=== PATIENT | female | born 1970 | race Caucasian/White ===

== ENCOUNTER 2020-06-30 19:38 | Emergency (ER) | payer SELFPAY ==
--- OUTSIDE RECORDS SUMMARY | 2020-06-30 19:42 | XMS REPORT | Continuity of Care Document ---
:1970 Author Organization [facility] t Address On license of [facility] Dr. Aburto [address] [place] [id number] Care Team Providers Name Role Phone DR Calli DURÁN Attending Clinician Unavailable DR Calli DURÁN Admitting Clinician Unavailable Problems This patient has no known problems. Allergies, Adverse Reactions, Alerts This patient has no known allergies or adverse reactions. Medications This patient has no known medications. Procedures This patient has no known procedures. Encounters Start End Encounter Admission Attending Care Care Encounter Source Date/Time Date/Time Type Type Clinicians Facility Department ID 2018-07-24 2018-07-24 Emergency E LILY DURÁN [facility] [id number] [facility] Results Test Description Test Time Test Comments Results Result Comments Source URINE CULTURE 2018-07-26 08:04:00 Test Item Value Reference Range Interpretation Comme nts Isolate 1 (test code = ISO1) Klebsiella pneumoniae ssp pneumoniae A ampicillin (test code = am) ug/mL R ampicillin/sulbactam (test code = ams) ug/mL S piperacillin/tazobactam (test code = tzp) ug/mL S cefazolin (test code = cz) ug/mL S ceftazidime (test code = tali) ug/mL S ceftriaxone1 (test code = ctr) ug/mL S cefepime (test code = fep) ug/mL S aztreonam (test code = azm) ug/mL S ertapenem (test code = etp) ug/mL S meropenem (test code = mem) ug/mL S gentamicin (test code = gm) ug/mL S tobramycin (test code = tob) ug/mL S levofloxacin (test code = lev) ug/mL S nitrofurantoin (test code = ftn) ug/mL S trimethoprim/sulfamethoxazole (test code = ug/mL S sxt) U/S [id number] 16:20:34Right upper quadrant ultrasoundLocation Code: [id number] HISTORY: Abdominal painTechnique: Grayscaleand selected color Doppler ultrasound of the abdomen wasperformed.Findings:The liver is normal in ech ogenicity. There is no mass or intrahepatic biliaryductal dilatation. Right liver span is 11.5cm.The bladder appears mildly distended however there are no stones orsludge.Gallbladder wall is 3 mm. Common bile duct measures 5 mm. There is nopericholecystic fluid. Sonographic Catalan sign is negative.The right kidney measures 10.4 x 3.5 x 4.6 cm. Mild right-sided hydronephrosisnoted along with cyst in the midpole measuring 1.2 x 1.4 cm.The visualized portions of the pancreas, aorta, and inferior vena cava areunremarkable. IMPRESSION: Mild fullness of the right renal collecting system with 1.4 cmrightrenal cyst.Mildly distended gallbladder without stones.U/S [id number] 16:20:34Right upper quadrant ultrasoundLocation Code: [id number] HISTORY: Abdominal painTechnique: Grayscaleand selected color Doppler ultrasound of the abdomen wasperformed.Findings:The liver is normal in echogenicity. There is no mass or intrahepatic biliaryductal dilatation. Right liver span is 11.5cm.The bladder appears mildly distended however there are no stones orsludge.Gallbladder wall is 3 mm. Common bile duct measures 5 mm. There is nopericholecystic fluid. Sonographic Catalan sign is negative.The right kidney measures 10.4 x 3.5 x 4.6 cm. Mild right-sided hydronephrosisnoted along with cyst in the midpole measuring 1.2 x 1.4 cm.The visualized portions of the pancreas, aorta, and inferior vena cava areunremarkable. IMPRESSION: Mild fullness of the right renal collecting system with 1.4 cmrightrenal cyst.Mildly distended gallbladder without stones.U/S [id number] 16:18:11PELVIC ULTRASOUND:Location code: [id number] HISTORY: Pelvic painComparison: NoneTECHNIQUE: Transabdominal sonography of the pelvis was performed followed byendovaginal scanning for better characterization of the ovaries. FINDINGS: The uterus is uniform in echogenicity measuring 7.5 x 4.1 x 6.1 cm. The endometrium is unremarkable at 6 mm. The right ovary measures 2.4 x 1.8 x 2.3 cm. The left ovary measures 4.4 x 3.8x 4.8 cm with large complex cyst with diffuse low-level echoes measuring 4.1 x3.8 x2.9 cm. There is no adnexal mass or free fluid. IMPRESSION:4.1 cm complex left ovarian cyst which could represent hemorrhagic cyst orendometrioma. More aggressive lesion thought to be less likely.THYROID PANEL/SCREEN (TSH) 2018-07-24 13:17:00 Test Item Value Reference Range Interpretation Comments TSH (test code = A57) 0.482 uIU/mL 0.358-3.740 CT STONE PROTOCOL [id number] 13:13:26CT ABDOMEN AND PELVIS WITHOUT CONTRAST, RENAL STONE PROTOCOL:Location code: [id number] HISTORY: L flank painCOMPARISON: Left flank painTECHNIQUE: Helical CT of the abdomen and pelvis was performed withoutcontrast. Thin section axial, sagittal and coronal images were obtained.Automatic exposure control was utilized. Total DLP: 400 mGycm.FINDINGS: There are multiple punctate, 2 to 3 mm parenchymal renal calculi bilaterallyalong with increased density in the medullary appearance consistent withmedullary nephrocalcinosis. There is no ureteral calculus or hydronephrosis.The visualized lung bases areclear. The unenhanced liver, gallbladder,adrenals, pancreas, and spleen are unremarkable.The unopacified loops of bowel demonstrate no focal thickening or dilatation.The appendix is visualized and is normal. There is no free intraperitoneal airor fluid. The abdominal aorta is normal in caliber and contour. There is noretroperitoneal adenopathy or mass. The urinary bladder is unremarkable.There isan ill-defined left adnexal mass measuring 4.8 x 2.6 x 3.9 cm. The bones, skin and surrounding soft tissues are unremarkable. IMPRESSION:1. 4.8 cm left adnexal mass, possibly ovarian or uterine related. Pelvicultrasound is recommended.2. Multiple punctate parenchymal renal calcifications along with medullarynephrocalcinosis bilaterally. There is no ureteral calculus or hydronephrosis.COMPREHENSIVE METABOLIC [id number] 12:56:00 Test Item Value Reference Range Interpretation Comments GLUCOSE (test code = 06D) 108 mg/dL 75-100 H SODIUM (test code = 01A) 137 mmol/L 136-145 POTASSIUM (test code = 01B) 2.8 mmol/L 3.6-5.1 LL CHLORIDE (test code = 04A) 95 mmol/L 98-107 L CO2 (test code = 02A) 34 mmol/L 22-32 H ANION GAP (test code = ANG) 10.8 mmol/L BUN (test code = 05D) 4 mg/dL 7-18 L CREATININE (test code = 03E) 0.9 mg/dL 0.4-1.1 BUN/CREA (test code = BCR) 5 12-20 L CALCIUM (test code = 09D) 7.8 mg/dL 8.3-9.5 L BILI TOTAL (test code = 11A) 1.1 mg/dL 0.2-1.0 H PROTEIN (test code = 07D) 7.0 g/dL 6.4-8.2 ALBUMIN (test code = 08D) 3.0 g/dL 3.5-4.8 L GLOBULIN (test code = GLB) 4.0 g/dL 1.5-3.8 H ALB/GLOB (test code = AGRR) 0.8 1.0-2.6 L ALK PHOS (test code = 35A) 401 IU/L 42-121 H AST (test code = 30A) 282 IU/L <=42 H ALT (test code = 31A) 273 IU/L <=78 H AMYLASE AND [id number] 12:54:00 Test Item Value Reference Range Interpretation Comments AMYLASE (test code = 10A) 60 U/L 28-100 LIPASE (test code = 60A) 249 IU/L 73-393 SERUM [id number] 12:40:00 Test Item Value Reference Range Interpretation Comments PREG SRM (test code = PGS) NEGATIVE NEGATIVE URINALYSIS WITH [id number] 12:40:00 Test Item Value Reference Range Interpretation Comments COLOR (test code = YELLOW YELLOW COLU) CLARITY (test code = TURBID CLEAR A CLA) GLUCOSE UR (test code NEGATIVE NEGATIVE = UA GLUCOSE) BILI UR (test code = NEGATIVE NEGATIVE BILE) KETONES UR (test code NEGATIVE NEGATIVE = ASHLEY) SP GRAVITY (test code 1.004 1.005-1.030 L = SPGR) PH UR (test code = 6.5 4.5-8.0 PH) PROTEIN UR (test code TRACE NEGATIVE A = PU) UROBIL UR (test code 1.0 EU/dL 0.2-1.0 = UROQ) NITRITE UR (test code NEGATIVE NEGATIVE = NITRITE) BLOOD UR (test code = 1+ NEGATIVE A UA BLOOD) LEUK ES UR (test code 3+ NEGATIVE A = LEUK) WBC UR (test code = 20 /HPF 0-5 H UWBC) RBC UR (test code = 1 /HPF 0-2 Previous ly reported as: URBC) 2 On 07/24/20 18 12:40 By MF33 EPITH UR (test code MANY /LPF FEW A = UEPC) BACTERIA UR (test MANY /HPF NONE A code = UBACT) CAST UR (test code = /LPF NONE CAST) CRYSTAL UR (test code / LPF NONE = CRYU) MUCUS UR (test code = / HPF NONE MUC) AMORPH UR (test code / HPF NONE = JOE) TRICH UR (test code = /HPF NONE UTRICH) YEAST UR (test code = /HPF NONE UY) SPERM UR (test code = /HPF NONE USPERM) CBC (INCLUDES AUTOMATED DIFFERENTIAL)2018-07-24 12:38:00 Test Item Value Reference Range Interpretation Comments WBC (test code = WBC) 10.6 10\S\3/uL 4.5-11.0 RBC (test code = RBC) 4.15 10\S\6/uL 4.20-5.60 L HGB (test code = HBG) 12.7 g/dL 12.0-15.5 HCT (test code = HCT) 37.7 % 35.0-44.0 MCV (test code = MCV) 90.8 fL 81.0-99.0 MCH (test code = MCH) 30.6 pg 27.0-31.0 MCHC (test code = MCHC) 33.7 g/dL 32.0-36.0 RDW (test code = RDW) 12.6 % 11.5-14.5 PLT (test code = PLT) 196 10\S\3/uL 130-400 MPV (test code = MPV) 11.4 fL 9.4-12.4 NEUTROP # (test code = NE#) 8.0 10\S\3/uL 1.6-8.0 LYMPH # (test code = LY#) 1.3 10\S\3/uL 1.1-3.5 MONOCYTE # (test code = MO#) 1.1 10\S\3/uL 0.0-1.1 EOSINOPH # (test code = EO#) 0.1 10\S\3/uL 0.0-0.7 BASOPHIL # (test code = BA#) 0.1 10\S\3/uL 0.0-0.3 IG # (test code = IG#) 0.04 10\S\3/uL 0.00-0.06 NRBC # (test code = NRBC#) 0.00 10\S\3/uL 0.00-0.01 NEUTROPH % (test code = NE%) 75.5 % 35.0-73.0 H LYMPH % (test code = LY%) 12.1 % 20.0-55.0 L MONO % (test code = MO%) 9.9 % 2.5-10.0 EOSINOPH % (test code = EO%) 1.3 % 0.0-5.0 BASOPHIL % (test code = BA%) 0.8 % 0.0-2.0 IG % (test code = IG%) 0.4 % 0.0-0.8 NRBC% (test code = NRBC%) 0.0 % 0.0-0.2 MANDIFF (test code = MDIFF) NO NO RBC MORPH (test code = RBCMOR) NORMAL
--- NOTE | 2020-06-30 20:56 | EDPHYS ---
Physician Documentation [facility] Name: Ann Roman Age: 50 yrs Sex: Female : 1970 Arrival Date: 06/30/2020 Time: 19:44 Bed 14 Private MD: ED Physician Yobani Banuelos HPI: 07/01 05:08 This 50 yrs old Female presents to ER via Ambulatory with complaints of tw4 Vaginal Discharge. 05:08 This 50 yrs old Female presents to ER via Ambulatory with complaints of tw4 Vaginal Discharge. 05:08 The patient presents with vaginal discharge. Onset: The symptoms/episode began/occurred tw4 1 month(s) ago. Modifying factors: The symptoms are alleviated by nothing, the symptoms are aggravated by nothing. Associated signs and symptoms: Pertinent positives: vaginal bleeding. Severity of symptoms: At their worst the symptoms were moderate, in the emergency department the symptoms are unchanged. The patient has not experienced similar symptoms in the past. 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 - Social history:: Smoking status: Patient denies any tobacco usage or history of. Patient/guardian denies using alcohol, street drugs. ROS: 07/01 05:08 Positive for vaginal bleeding, vaginal discharge, vaginal itching, Negative for tw4 urinary frequency, hematuria, pelvic pain, flank pain, burning with urination, difficulty urinating, foul smelling urine. Constitutional: Negative for fever, chills, and weight loss, Eyes: Negative for injury, pain, redness, and discharge, Cardiovascular: Negative for chest pain, palpitations, and edema, Respiratory: Negative for shortness of breath, cough, wheezing, and pleuritic chest pain, Abdomen/GI: Negative for abdominal pain, nausea, vomiting, diarrhea, and constipation, Back: Negative for injury and pain, MS/Extremity: Negative for injury and deformity, Skin: Negative for injury, rash, and discoloration, Neuro: Negative for headache, weakness, numbness, tingling, and seizure. : Positive for vaginal bleeding, vaginal discharge, vaginal itching. Exam: 05:08 Constitutional: This is a well developed, well nourished patient who is awake, alert, tw4 and in no acute distress. Head/Face: Normocephalic, atraumatic. Chest/axilla: Normal chest wall appearance and motion. Nontender with no deformity. No lesions are appreciated. Cardiovascular: Regular rate and rhythm with a normal S1 and S2. No gallops, murmurs, or rubs. Normal PMI, no JVD. No pulse deficits. Respiratory: Lungs have equal breath sounds bilaterally, clear to auscultation and percussion. No rales, rhonchi or wheezes noted. No increased work of breathing, no retractions or nasal flaring. Abdomen/GI: Soft, non-tender, with normal bowel sounds. No distension or tympany. No guarding or rebound. No evidence of tenderness throughout. MS/ Extremity: Pulses equal, no cyanosis. Neurovascular intact. Full, normal range of motion. Neuro: Awake and alert, GCS 15, oriented to person, place, time, and situation. Cranial nerves II-XII grossly intact. Motor strength 5/5 in all extremities. Sensory grossly intact. Cerebellar exam normal. Normal gait. Psych: Awake, alert, with orientation to person, place and time. Behavior, mood, and affect are within normal limits. Vital Signs: 06/30 19:59 BP 153 / 79; Pulse 94; Resp 16 S; Temp 98.4(O); Pulse Ox 98% on R/A; Weight 49.9 kg bb (R); Height 5 ft. 4 in. (162.56 cm) (R); Pain 0/10; 19:59 Body Mass Index 18.88 (49.90 kg, 162.56 cm) bb MDM: 19:49 Patient medically screened. tw4 20:56 Data reviewed: vital signs, nurses notes. Medical screen evaluation completed. [facility] emergency medical condition absent. 07/01 05:08 Data interpreted: Pulse oximetry: Interpretation: normal. Counseling: I had a detailed tw4 discussion with the patient and/or guardian regarding: the historical points, exam findings, and any diagnostic results supporting the discharge/admit diagnosis. Special discussion: I discussed with the patient/guardian in detail that at this point there is no indication for admission to the hospital. It is understood, however, that if the symptoms persist or worsen the patient needs to return immediately for re-evaluation. Administered Medications: No medications were administered Disposition: 06/30 20:56 MSE. tw4 Disposition: 06/30/20 20:55 Discharged to Home. Impression: Vaginitis, vulvitis and vulvovaginitis in diseases classified elsewhere. - Condition is Stable. - Discharge Instructions: Vaginitis. - Medication Reconciliation Form, Thank You Letter, Antibiotic Education, Prescription Opioid Use form. - Follow up: Private Physician; When: Upon discharge from the Emergency Department; Reason: Recheck today's complaints, Continuance of care, Re-evaluation by your physician. - Problem is new. - Symptoms have improved. Signatures: Ann Rowan RN RN Yobani La MD MD tw4 Josselin Martin RN RN ca1 Corrections: (The following items were deleted from the chart) 21:09 20:55 06/30/2020 20:55 Discharged to Home. Impression: Vaginitis, vulvitis and ca1 vulvovaginitis in diseases classified elsewhere. Condition is Stable. Forms are Medication Reconciliation Form, Thank You Letter, Antibiotic Education, Prescription Opioid Use. Follow up: Private Physician; When: Upon discharge from the Emergency Department; Reason: Recheck today's complaints, Continuance of care, Re-evaluation by your physician. Problem is new. Symptoms have improved. tw4
--- NOTE | 2020-06-30 20:56 | ER ---
Nurse's Notes [facility] Name: Ann Roman Age: 50 yrs Sex: Female : 1970 Arrival Date: 06/30/2020 Time: 19:44 Bed 14 Private MD: Diagnosis: Vaginitis, vulvitis and vulvovaginitis in diseases classified elsewhere Presentation: 06/30 19:59 Chief complaint: Patient states: she has had a vaginal discharge for 2 months it bb started off intermittently and is getting worse she also c/o an odor. Coronavirus screen: At this time, the client does not indicate any symptoms associated with coronavirus-19. Ebola Screen: No symptoms or risks identified at this time. Initial Sepsis Screen: Does the patient meet any 2 criteria? No. Patient's initial sepsis screen is negative. Does the patient have a suspected source of infection? No. Patient's initial sepsis screen is negative. Risk Assessment: Do you want to hurt yourself or someone else? Patient reports no desire to harm self or others. Onset of symptoms was May 2020. 19:59 Method Of Arrival: Ambulatory bb 19:59 Acuity: BHAKTI 4 bb Triage Assessment: 20:09 General: Appears in no apparent distress. slender, Behavior is calm, cooperative. Pain: bb Denies pain. Neuro: Level of Consciousness is awake, alert, obeys commands, Oriented to person, place, time, situation. : Reports intermittent vaginal discharge x 2 months. 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 - Social history:: Smoking status: Patient denies any tobacco usage or history of. Patient/guardian denies using alcohol, street drugs. Vital Signs: 19:59 BP 153 / 79; Pulse 94; Resp 16 S; Temp 98.4(O); Pulse Ox 98% on R/A; Weight 49.9 kg bb (R); Height 5 ft. 4 in. (162.56 cm) (R); Pain 0/10; 19:59 Body Mass Index 18.88 (49.90 kg, 162.56 cm) bb ED Course: 19:44 Patient arrived in ED. am2 19:48 Yobani Banuelos MD is Attending Physician. tw4 19:48 Josselin Martin, RN is Primary Nurse. ca1 20:04 Triage completed. bb 20:09 Arm band placed on Patient placed in an exam room, on a stretcher, on pulse oximetry. bb Administered Medications: No medications were administered Outcome: 20:55 Discharge ordered by . tw4 21:09 Patient left the ED. ca1 Signatures: Ann Rowan, RN RN Cassi Sauer am2 Yobani Banuelos MD MD tw4 Josselin Martin, RN RN ca1
[2020-06-30 21:13] VITALS: BP 153/79; TEMP 98.4; O2SAT 98
== END 2020-06-30 21:09 | disposition home or self-care (01) ==
LOC: ER 19:38
DX: N76.0 Acute vaginitis (principal); N76.2 Acute vulvitis; Z88.6 Allergy status to analgesic agent
CPT/HCPCS: 99282

== ENCOUNTER 2021-11-06 14:07 | Emergency (ER) | payer SELFPAY ==
--- OUTSIDE RECORDS SUMMARY | 2021-11-06 14:10 | XMS REPORT | Continuity of Care Document ---
:1970 Author Organization [facility] t Address [address] Aburto [address] [place] [address] Care Team Providers Name Role Phone Sari MUNOZ Attending Clinician Unavailable Sari MUNOZ Attending Clinician [phone] DR Calli DURÁN Attending Clinician Unavailable DR Calli DURÁN Admitting Clinician Unavailable Problems This patient has no known problems. Allergies, Adverse Reactions, Alerts This patient has no known allergies or adverse reactions. Social History Social Habit Start Date Stop Date Quantity Comments Source Sex Assigned At Female [facility] Smoking Status Start Date Stop Date Source Unknown if ever smoked Access He alth Medications This patient has no known medications. Procedures Procedure Date / Time Performed Performing Clinician Sour e Infectious agent detection 2020-10-01 00:00:00 A [email or web address] by nucleic acid (DNA or Encounters Start End Encounter Admission Attending Care Care Encounter Source Date/Time Date/Time Type Type Clinicians Facility Department ID 2020-10-01 2020-10-01 Outpatient [facility] [id number] Access 09:30:00 09:30:00 [facility] 2020-10-01 2020-10-01 Outpatient [facility] [id number] Access 09:30:00 09:30:00 [facility] 2020-10-01 2020-10-01 [facility] [id number] Access 09:30:00 09:30:00 YANETH [id number] [facility] [id number] 2020-10-01 2020-10-01 Outpatient [facility] [id number] Access 09:30:00 09:30:00 [id number] [facility] [id number] 2020-10-01 Outpatient TAM[facility] [id number] Access 00:00:00 00:00:00 YANETH Pascual 2020-10-01 2020-10-01 Outpatient TAMMY APRIL [id number] Access 00:00:00 00:00:00 YANETH Guo [id number] [facility] [id number] [id number] 2018-07-24 2018-07-24 Emergency E LILY DURÁN [facility] [id number] [place] 12:00:00 16:25:00 [facility] Results Test Description Test Time Test Comments Results Result Comments Source Panel Description: SARS-CoV-2 (COVID-19) RNA [Presence] in 2 06:04:00 Unspecified specimen by MO with probe detection Test Item Value Reference Range Interpretation Comme nts SARS-CoV-2, MO (test Not Detected Not Detected Testin g was performed using the code = 48664-2) Aptima SARS- CoV-2 assay.This nucleic acid amplificat ion test was developed and i ts performancechar acteristics determined by [employer]. Nucleic acidamp lification tests include PCR and TMA. This test has not been FDAcle ared or approved. This test has b een authorized by FDA under anEmergen cy Use Authorization (EUA). This rene t is only authorized forthe duration of time the declaration nick t circumstances existjustifying the authorization of the emergency u se of in vitrodiagnostic tests for detection of SARS-CoV-2 v irus and/or diagnosisof COV ID-19 infection under section 564(b)( 1) of the Act, 21 U.S.C.360bbb-3( b) (1), unless the authorization i s terminated or revokedsooner.W hen diagnostic testing is nega tive, the possibility of a falsenegat urban result should be considered in t he context of a patient'srecent exposures and the presence of cli nical signs and symptomsconsist ent with COVID-19. An individual with out symptoms of COVID-19and who is not shedding SARS-CoV-2 viru s would expect to have anegative (not detected) result in this assay.< br/>
Performed by:
LabCokarlene Peguero (FELICE)

[facility] [id number] 08:04:00 Test Item Value Reference Range Interpretation Comments Isolate 1 (test code = Klebsiella A ISO1) pneumoniae ssp pneumoniae ampicillin (test code = ug/mL R am) ampicillin/sulbactam ug/mL S (test code = ams) piperacillin/tazobactam ug/mL S (test code = tzp) cefazolin (test code = ug/mL S cz) ceftazidime (test code = ug/mL S tali) ceftriaxone1 (test code = ug/mL S ctr) cefepime (test code = ug/mL S fep) aztreonam (test code = ug/mL S azm) ertapenem (test code = ug/mL S etp) meropenem (test code = ug/mL S mem) gentamicin (test code = ug/mL S gm) tobramycin (test code = ug/mL S tob) levofloxacin (test code = ug/mL S lev) nitrofurantoin (test code ug/mL S = ftn) trimethoprim/sulfamethoxa ug/mL S zole (test code = sxt) U/S [id number] 16:20:34Right upper quadrant ultrasoundLocation Code: [id number] HISTORY: Abdominal painTechnique: Grayscaleand selected color Doppler [...] 1.4 cmrightrenal cyst.Mildly distended gallbladder without stones.U/S [id number] 16:20:34Right upper quadrant ultrasoundLocation Code: [id number] HISTORY: Abdominal painTechnique: Grayscaleand selected color Doppler [...] 1.4 cmrightrenal cyst.Mildly distended gallbladder without stones.U/S [id number] 16:18:11PELVIC ULTRASOUND:Location code: [id number] HISTORY: Pelvic painComparison: NoneTECHNIQUE: Transabdominal sonography of [...] A57) 0.482 uIU/mL 0.358-3.740 CT STONE PROTOCOL [id number] 13:13:26CT ABDOMEN AND PELVIS WITHOUT CONTRAST, RENAL STONE PROTOCOL:Location code: [id number] HISTORY: L flank painCOMPARISON: Left flank painTECHNIQUE: [...] is no ureteral calculus or hydronephrosis.COMPREHENSIVE METABOLIC [id number] 12:56:00 Test Item Value Reference Range Interpretation [...] 31A) 273 IU/L <=78 H AMYLASE AND [id number] 12:54:00 Test Item Value Reference Range Interpretation Comments AMYLASE (test code = 10A) 60 U/L 28-100 LIPASE (test code = 60A) 249 IU/L 73-393 SERUM [id number] 12:40:00 Test Item Value Reference Range Interpretation Comments PREG SRM (test code = PGS) NEGATIVE NEGATIVE URINALYSIS WITH [id number] 12:40:00 Test Item Value Reference Range Interpretation [...] URBC) 2 On 07/24/20 18 12:40 By 33 EPITH UR (test code MANY /LPF FEW [...]
--- NOTE | 2021-11-06 15:05 | EDPHYS ---
Physician Documentation [facility] Name: Ann Roman Age: 51 yrs Sex: Female : 1970 Arrival Date: 11/06/2021 Time: 14:10 Bed 10 Private MD: ED Physician Jame Garibay HPI: 11/06 14:52 This 51 yrs old Female presents to ER via Ambulatory with complaints of Hand Swelling. rn 14:52 The patient or guardian reports swelling. The complaints affect the MCP of left middle rn finger and MCP of left index finger. Onset: The symptoms/episode began/occurred just prior to arrival. Modifying factors: The symptoms are alleviated by nothing, the symptoms are aggravated by nothing. Severity of symptoms: At their worst the symptoms were moderate, in the emergency department the symptoms have improved. The patient has not experienced similar symptoms in the past. The patient has not recently seen a physician. Patient reports that 1 hour prior to arrival swatted at a bug and then noticed left hand swelling on the palm of the hand just proximal to second and third MCP. Took some anti-inflammatories and has gotten better. No pain. Does itch.. Historical: - Allergies: 14:40 Codeine; ss - PMHx: 14:40 Endometrosis; Migraines; ss - Immunization history:: Client reports receiving the 2nd dose of the Covid vaccine. - Social history:: Smoking status: Patient denies any tobacco usage or history of. - Family history:: not pertinent. - Hospitalizations: : No recent hospitalization is reported. ROS: 14:52 Constitutional: Negative for fever, chills, and weight loss, Eyes: Negative for injury, rn pain, redness, and discharge, ENT: Negative for injury, pain, and discharge, Neck: Negative for injury, pain, and swelling, Cardiovascular: Negative for chest pain, palpitations, and edema, Respiratory: Negative for shortness of breath, cough, wheezing, and pleuritic chest pain, Abdomen/GI: Negative for abdominal pain, nausea, vomiting, diarrhea, and constipation, Back: Negative for injury and pain, MS/Extremity: Positive for swelling around the left second and third MCP on the palmar surface Skin: Positive for swelling and redness to the left palm of hand Neuro: Negative for headache, weakness, numbness, tingling, and seizure. Exam: 14:52 Constitutional: This is a well developed, well nourished patient who is awake, alert, rn and in no acute distress. ENT: No stridor Cardiovascular: Regular rate and rhythm. No pulse deficits. Respiratory: Speaking full sentences, unlabored. NO increased work of breathing, no retractions or nasal flaring. Skin: Warm, dry, 2 cm diameter area of swelling and induration on the palmar surface of the left hand around the second and third MCP. Full range of motion of fingers and joints without pain. No fluctuance or tenderness with palpation. No puncture wound or foreign body MS/ Extremity: Pulses equal, no cyanosis. Neurovascular intact. Full, normal range of motion. Equal circumference. Vital Signs: 14:40 Pulse 72; Resp 17; Pulse Ox 100% on R/A; Weight 53.07 kg; Height 5 ft. 4 in. (162.56 ss cm); Pain 0/10; 14:42 BP 162 / 111; ss 14:40 Body Mass Index 20.08 (53.07 kg, 162.56 cm) ss MDM: 14:46 Patient medically screened. rn 14:59 Differential diagnosis: contusion, insect bite, sting, local allergic reaction, rn cellulitis. Data reviewed: vital signs, nurses notes, and as a result, I will discharge patient. Counseling: I had a detailed discussion with the patient and/or guardian regarding: the historical points, exam findings, and any diagnostic results supporting the discharge/admit diagnosis, the need for outpatient follow up, to return to the emergency department if symptoms worsen or persist or if there are any questions or concerns that arise at home. Special discussion: I discussed with the patient/guardian in detail that at this point there is no indication for admission to the hospital. It is understood, however, that if the symptoms persist or worsen the patient needs to return immediately for re-evaluation. 14:59 ED course: Symptoms already improving after anti-inflammatories. Seems more like local rn allergic reaction. But will DC home with steroids and antibiotics for the possibility of early cellulitis.. 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
--- NOTE | 2021-11-06 15:05 | ER ---
Nurse's Notes [facility] Name: Ann Roman Age: 51 yrs Sex: Female : 1970 Arrival Date: 11/06/2021 Time: 14:10 Bed 10 Private MD: Diagnosis: Localized swelling, mass and lump, left upper limb-Hand Presentation: 11/06 14:40 Chief complaint: Patient states: Swatted a small bug 1 hour ago and began having ss swelling to L hand. Pt states, "I also started taking my brother's 's antibiotics because I have an abscessed tooth, so I don't know if it's from that.". Coronavirus screen: Client denies travel out of the [place] in the last 14 days. Ebola Screen: Patient denies exposure to infectious person. Patient denies travel to an Ebola-affected area in the 21 days before illness onset. Initial Sepsis Screen: Does the patient meet any 2 criteria? No. Patient's initial sepsis screen is negative. Does the patient have a suspected source of infection? No. Patient's initial sepsis screen is negative. Risk Assessment: Do you want to hurt yourself or someone else? Patient reports no desire to harm self or others. Onset of symptoms was November 06, 2021. 14:40 Method Of Arrival: Ambulatory ss 14:40 Acuity: BHAKTI 4 ss Historical: - Allergies: 14:40 Codeine; ss - PMHx: 14:40 Endometrosis; Migraines; ss - Immunization history:: Client reports receiving the 2nd dose of the Covid vaccine. - Social history:: Smoking status: Patient denies any tobacco usage or history of. - Family history:: not pertinent. - Hospitalizations: : No recent hospitalization is reported. Screenin:40 Abuse screen: Denies threats or abuse. Denies injuries from another. Nutritional ss screening: No deficits noted. Tuberculosis screening: Never had TB. Fall Risk None identified. Assessment: 14:40 General: Appears in no apparent distress. comfortable, Behavior is calm, cooperative, ss Denies fever, feeling ill, fatigue, chills. Neuro: Level of Consciousness is awake, alert, obeys commands, Oriented to person, place, time. Cardiovascular: Capillary refill < 3 seconds is brisk in bilateral fingers. Respiratory: Airway is patent Respiratory effort is even, unlabored, Respiratory pattern is regular, symmetrical. GI: No signs and/or symptoms were reported involving the gastrointestinal system. EENT: Nares are clear Oral mucosa is moist. Throat is clear. Derm: Skin is intact, is healthy with good turgor, Skin is dry, Skin is pink, warm \\T\\ dry. normal. Musculoskeletal: Circulation, motion, and sensation intact. Range of motion: intact in all extremities, Swelling present in MCP of left index finger and MCP of left middle finger. 15:14 Reassessment: Patient appears in no apparent distress at this time. Patient and/or ss family updated on plan of care and expected duration. Pain level reassessed. Patient is alert, oriented x 3, equal unlabored respirations, skin warm/dry/pink. Vital Signs: 14:40 Pulse 72; Resp 17; Pulse Ox 100% on R/A; Weight 53.07 kg; Height 5 ft. 4 in. (162.56 ss cm); Pain 0/10; 14:42 BP 162 / 111; ss 14:40 Body Mass Index 20.08 (53.07 kg, 162.56 cm) ED Course: 14:10 Patient arrived in ED. mr 14:40 Arm band placed on right wrist. ss 14:40 Patient has correct armband on for positive identification. Bed in low position. Call ss light in reach. 14:42 Triage completed. ss 14:46 Jame Garibay MD is Attending Physician. rn 15:14 Asia Thorne RN is Primary Nurse. ss 15:14 No provider procedures requiring assistance completed. Patient did not have IV access ss during this emergency room visit. Administered Medications: No medications were administered Outcome: 15:05 Discharge ordered by . rn 15:14 Discharged to home ambulatory. ss 15:14 Condition: good 15:14 Discharge instructions given to patient, Instructed on discharge instructions, follow up and referral plans. Demonstrated understanding of instructions, follow-up care. 15:19 Patient left the ED. Signatures: Rehana Chan Jame Gutierrez MD MD rn Smirch, Shelby, RN RN
[2021-11-06 15:46] VITALS: O2SAT 100
[2021-11-06 15:47] VITALS: BP 162/111
== END 2021-11-06 15:19 | disposition home or self-care (01) ==
LOC: ER 14:07
DX: R22.32 Localized swelling, mass and lump, left upper limb (principal); Z88.5 Allergy status to narcotic agent
CPT/HCPCS: 99281

== ENCOUNTER 2022-04-14 09:03 | Emergency (ER) | payer SELFPAY ==
--- OUTSIDE RECORDS SUMMARY | 2022-04-14 09:06 | XMS REPORT | Continuity of Care Document ---
:1970 Author Organization [facility] t Address [address] [place] [address] [place] [address] Care Team Providers Name Role Phone Sari MUNOZ Attending Clinician Unavailable Sari MUNOZ Attending Clinician [phone] DR Calli DURÁN Attending Clinician Unavailable DR Calli DURÁN Admitting Clinician Unavailable Problems This patient has no known problems. Allergies, Adverse Reactions, Alerts This patient has no known allergies or adverse reactions. Social History Social Habit Start Date Stop Date Quantity Comments Source Sex Assigned At Female [facility] Smoking Status Start Date Stop Date Source Unknown if [facility] Medications This patient has no known medications. Procedures Procedure Date / Time Performed Performing Clinician Sourc e Infectious agent detection by 2020-10-01 00:00:00 Merged with [facility] nucleic acid (DNA or Encounters Start End Encounter Admission Attending Care Care Encounter Source Date/Time Date/Time Type Type Clinicians Facility Department ID 2020-10-01 2020-10-01 Outpatient [facility] [id number] [facility] 09:30:00 09:30:00 [facility] 2020-10-01 2020-10-01 Outpatient [facility] [id number] [facility] 09:30:00 09:30:00 YANETH [facility] 2020-10-01 2020-10-01 [facility] [id number] [facility] 09:30:00 09:30:00 YANETH Sari [id number] [facility] [id number] 2020-10-01 2020-10-01 Outpatient [facility] [id number] Access 09:30:00 09:30:00 [id number] [facility] [id number] 2020-10-01 Outpatient TAMMY [facility] [id number] [facility] 00:00:00 00:00:00 [facility] 2020-10-01 2020-10-01 Outpatient TAMMY [facility] [id number] [facility] 00:00:00 00:00:00 YANETH Guo [id number] [facility] [id number] [facility] [id number] 2018-07-24 2018-07-24 Emergency E LILY DURÁN [facility] [id number] [facility] 12:00:00 16:25:00 [facility] Results Test Description Test Time Test Comments Results Result Comments Source Panel Description: SARS-CoV-2 (COVID-19) RNA [Presence] in 2 06:04:00 Unspecified specimen by MO with probe detection Test Item Value Reference Range Interpretation Comme nts SARS-CoV-2, MO (test Not Detected Not Detected Testin g was performed using the code = 18349-7) Aptima SARS- CoV-2 assay.This nucleic acid amplificat ion test was developed and i ts performancechar acteristics determined by [employer]. Nucleic acidamp lification tests include PCR and TMA. This test has not been FDAcle ared or approved. This test has b een authorized by FDA under anEmerTRUECar cy Use Authorization (EUA). This rene t [...] result in this assay.< br/>
Performed by:
[facility] Sudhir (FELICE)

[facility] [id number] 08:04:00 Test Item Value Reference Range Interpretation [...] S zole (test code = sxt) U/S [id number] 16:20:34Right upper quadrant ultrasoundLocation Code: [id number] HISTORY: Abdominal painTechnique: Grayscaleand selected color Doppler [...] 1.4 cmrightrenal cyst.Mildly distended gallbladder without stones.U/S [id number] 16:20:34Right upper quadrant ultrasoundLocation Code: [id number] HISTORY: Abdominal painTechnique: Grayscaleand selected color Doppler [...] 1.4 cmrightrenal cyst.Mildly distended gallbladder without stones.U/S [id number] 16:18:11PELVIC ULTRASOUND:Location code: [id number] HISTORY: Pelvic painComparison: NoneTECHNIQUE: Transabdominal sonography of [...] A57) 0.482 uIU/mL 0.358-3.740 CT STONE PROTOCOL [id number] 13:13:26CT ABDOMEN AND PELVIS WITHOUT CONTRAST, RENAL STONE PROTOCOL:Location code: [id number] HISTORY: L flank painCOMPARISON: Left flank painTECHNIQUE: [...] is no ureteral calculus or hydronephrosis.COMPREHENSIVE METABOLIC [id number] 12:56:00 Test Item Value Reference Range Interpretation [...] 31A) 273 IU/L <=78 H AMYLASE AND [id number] 12:54:00 Test Item Value Reference Range Interpretation Comments AMYLASE (test code = 10A) 60 U/L 28-100 LIPASE (test code = 60A) 249 IU/L 73-393 SERUM [id number] 12:40:00 Test Item Value Reference Range Interpretation Comments PREG SRM (test code = PGS) NEGATIVE NEGATIVE URINALYSIS WITH [id number] 12:40:00 Test Item Value Reference Range Interpretation [...]
[2022-04-14] MEDS ORDERED: DIAZEPAM 5 MG TABLET ONE (09:43)
[2022-04-14] MEDS ORDERED: KETOROLAC 30 MG/ML INJ ONE (09:43)
--- NOTE | 2022-04-14 10:24 | RAD REPORT ---
EXAM DESCRIPTION: RAD - Lumbar Spine 3 Views - 04/14/2022 10:14 am CLINICAL HISTORY: Back pain FINDINGS: No fracture or dislocation is seen. No significant bone or joint abnormality noted
--- NOTE | 2022-04-14 10:26 | RAD REPORT ---
EXAM DESCRIPTION: RAD - Hip Left 2 View - 04/14/2022 10:14 am CLINICAL HISTORY: Left hip pain FINDINGS: No fracture or dislocation is seen. Minimal osteoarthritis left hip consisting of subchondral sclerosis
--- NOTE | 2022-04-14 11:17 | RAD REPORT ---
[facility] DESCRIPTION[facility] 11:02 am CLINICAL HISTORY: left leg pain COMPARISON: None FINDINGS: Left common femoral, superficial femoral, popliteal and posterior tibial veins are compre ssible and demonstrate augmentation. Doppler demonstrates good flow. Grayscale, color and spectral analysis performed on all vessels IMPRESSION: No evidence of deep venous thrombosis involving the left lower extremity.
--- NOTE | 2022-04-14 11:30 | ER ---
Nurse's Notes [facility] Name: Ann Roman Age: 52 yrs Sex: Female : 1970 Arrival Date: 04/14/2022 Time: 09:07 Bed Waiting Private MD: Diagnosis: Strain of muscle, fascia and tendon of lower back;Sciatica Presentation: 04/14 09:33 Chief complaint: Patient states: she has been having pain when ambulation on her left ap3 leg and left knee. patient reports feeling like her knee was going to "fall off" when she gets up to ambulate. Patient states this has been going on for approx 3 days. Coronavirus screen: At this time, the client does not indicate any symptoms associated with coronavirus-19. Ebola Screen: No symptoms or risks identified at this time. Initial Sepsis Screen: Does the patient meet any 2 criteria? No. Patient's initial sepsis screen is negative. Does the patient have a suspected source of infection? No. Patient's initial sepsis screen is negative. Risk Assessment: Do you want to hurt yourself or someone else? Patient reports no desire to harm self or others. Onset of symptoms was April 11, 2022. 09:33 Method Of Arrival: Wheelchair ap3 09:33 Acuity: BHAKTI 4 ap3 Triage Assessment: 09:35 General: Appears in no apparent distress. comfortable, Behavior is calm, cooperative, ap3 appropriate for age. Pain: Complains of pain in left leg. 09:35 Cardiovascular: Patient's skin is warm and dry. Respiratory: Airway is patent ap3 Respiratory effort is even, unlabored. 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 - Social history:: Smoking status: Patient denies any tobacco usage or history of. Screenin:34 Abuse screen: Denies threats or abuse. Nutritional screening: No deficits noted. ap3 Tuberculosis screening: No symptoms or risk factors identified. Fall Risk Fall in past 12 months (25 points). Secondary diagnosis (15 points) No IV (0 pts). Ambulatory Aid- Crutches/Cane/Walker (15 pts). Gait- Weak (10 pts.). Mental Status- Oriented to own ability (0 pts). Total Yao Fall Scale indicates High Risk Score (45 or more points). Vital Signs: 09:33 BP 129 / 79; Pulse 83; Resp 17; Temp 98.3; Pulse Ox 99% ; Weight 55.79 kg; Height 5 ft. ap3 4 in. (162.56 cm); Pain 10/10; 09:33 Body Mass Index 21.11 (55.79 kg, 162.56 cm) ap3 ED Course: 09:07 Patient arrived in ED. ja2 09:10 Sam Higgins PA is PHCP. micahel 09:10 Jame Garibay MD is Attending Physician. jm 09:34 Triage completed. ap3 09:35 Arm band placed on left wrist. ap3 10:15 Lumbar Spine (3 Views) XRAY In Process Unspecified. EDMS 10:15 Hip Left 2 View XRAY In Process Unspecified. EDMS 11:04 US Extremity Venous Unilateral Ltd In Process Unspecified. EDMS 12:02 Patient has correct armband on for positive identification. ap3 12:02 No provider procedures requiring assistance completed. Patient did not have IV access ap3 during this emergency room visit. Administered Medications: 09:42 Drug: Ketorolac 60 mg Route: IM; Site: left gluteus; ap3 09:42 Drug: Valium (diazepam) 5 mg Route: PO; ap3 Medication: 09:35 VIS not applicable for this client. ap3 Outcome: 11:29 Discharge ordered by . [facility] 12:02 Discharged to home ambulatory. ap3 12:02 Condition: good 12:02 Discharge instructions given to patient, Instructed on discharge instructions, follow up and referral plans. medication usage, Demonstrated understanding of instructions, follow-up care, medications, Prescriptions given X 3. 12:02 Patient left the ED. ap3 Signatures: Dispatcher [employer] EDMS Sam Higgins PA PA jmm Prokisch, Amanda, RN RN ap3 Vivi Reaves
--- NOTE | 2022-04-14 11:31 | EDPHYS ---
Physician Documentation [facility] Name: Ann Roman Age: 52 yrs Sex: Female : 1970 Arrival Date: 04/14/2022 Time: 09:07 Bed Waiting Private MD: ED Physician Jame Garibay HPI: 04/14 09:15 This 52 yrs old Female presents to ER via Wheelchair with complaints of Leg Pain. jmm 09:15 The patient presents with pain. Onset: The symptoms/episode began/occurred gradually, 3 jmm day(s) ago. Modifying factors: The symptoms are alleviated by nothing. the symptoms are aggravated by movement. Associated signs and symptoms: Pertinent negatives calf tenderness, numbness, swelling. This is a 52-year-old female with history of endometriosis and migraines and presents emerged part with complaints of lower back pain which radiates down mainly to the left thigh and knee, patient does have some pain in her ankle as well. Denies shortness of breath chest pain.. 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 - Social history:: Smoking status: Patient denies any tobacco usage or history of. ROS: 09:15 Constitutional: Negative for fever, chills, and weight loss, Cardiovascular: Negative jmm for chest pain, palpitations, and edema, Respiratory: Negative for shortness of breath, cough, wheezing, and pleuritic chest pain. 09:15 Back: Positive for pain with movement. 09:15 MS/extremity: Positive for pain. 09:15 All other systems are negative. Exam: 09:15 Constitutional: This is a well developed, well nourished patient who is awake, alert, jmm and in no acute distress. Head/Face: atraumatic. Eyes: EOMI, no conjunctival erythema appreciated ENT: Moist Mucus Membranes Neck: Trachea midline, Supple Chest/axilla: Normal chest wall appearance and motion. Cardiovascular: Regular rate and rhythm. No edema appreciated Respiratory: Normal respirations, no respiratory distress appreciated Abdomen/GI: Non distended, soft 09:15 Back: vertebral tenderness, is not appreciated, Left lower lumbar back pain on palpation, full range of motion appreciated. 09:15 Musculoskeletal/extremity: . 09:15 Skin: Appearance: Color: normal in color. 09:15 Neuro: Orientation: is normal, Mentation: is normal, Memory: is normal. 09:15 Psych: Behavior/mood is pleasant, cooperative. Vital Signs: 09:33 BP 129 / 79; Pulse 83; Resp 17; Temp 98.3; Pulse Ox 99% ; Weight 55.79 kg; Height 5 ft. ap3 4 in. (162.56 cm); Pain 10; 09:33 Body Mass Index 21.11 (55.79 kg, 162.56 cm) ap3 MDM: 09:15 Patient medically screened. [facility] 11:29 Data reviewed: vital signs, nurses notes. Counseling: I had a detailed discussion with michael the patient and/or guardian regarding: the historical points, exam findings, and any diagnostic results supporting the discharge/admit diagnosis, radiology results, the need for outpatient follow up, to return to the emergency department if symptoms worsen or persist or if there are any questions or concerns that arise at home. 04/14 09:21 Order name: Lumbar Spine (3 Views) XRAY; Complete Time: 10:25 [facility] 04/14 09:21 Order name: Hip Left 2 View XRAY; Complete Time: 10:27 [facility] 04/14 10:33 Order name: US Extremity Venous Unilateral Ltd; Complete Time: 11:17 [facility] Administered Medications: 09:42 Drug: Ketorolac 60 mg Route: IM; Site: left gluteus; ap3 09:42 Drug: Valium (diazepam) 5 mg Route: PO; ap3 Disposition: 18:19 Co-signature as Attending Physician, Jame Garibay MD. rn Disposition Summary: 04/14/22 11:29 Discharge Ordered Location: Home [facility] Condition: Stable [facility] Diagnosis - Strain of muscle, fascia and tendon of lower back jmm - Sciatica [facility] Followup: [facility] - With: Private Physician - When: 2 - 3 days - Reason: Recheck today's complaints, Continuance of care, Re-evaluation by your physician Discharge Instructions: - Discharge Summary Sheet [facility] - Low Back Sprain or Strain Rehab-SportsMed [facility] Forms: - Medication Reconciliation Form [facility] - Thank You Letter butch - Antibiotic Education [facility] - Prescription Opioid Use [facility] Prescriptions: - Zanaflex 4 mg Oral Tablet - take 1 tablet by ORAL route every 8 hours As needed; 20 tablet; Refills: 0, [facility] Product Selection Permitted - Diclofenac Sodium 75 mg Oral Tablet Sustained Release - take 1 tablet by ORAL route 2 times per day; 30 tablet; Refills: 0, Product [facility] Selection Permitted - Prednisone 20 mg Oral Tablet - take 3 tablets by ORAL route once daily for 5 days; 15 tablet; Refills: 0, [facility] Product Selection Permitted Signatures: Dispatcher [employer] Sam Palacios PA PA Jame Cali MD MD rn Cassi Lundy RN RN ap3
[2022-04-14 12:13] VITALS: BP 129/79; TEMP 98.3; O2SAT 99
== END 2022-04-14 12:02 | disposition home or self-care (01) ==
LOC: ER 09:03
DX: S39.012A Strain of muscle, fascia and tendon of lower back, initial encounter (principal); Z88.5 Allergy status to narcotic agent
CPT/HCPCS: 72100; 93971; 96372; 99283

== ENCOUNTER 2022-04-15 08:24 | Emergency (ER) | payer SELFPAY ==
--- OUTSIDE RECORDS SUMMARY | 2022-04-15 08:27 | XMS REPORT | Continuity of Care Document ---
:1970 Author Organization [facility] t Address [facility] [address] Aburto [address] [place] [id number] Care Team Providers Name Role Phone Sari MUNOZ Attending Clinician Unavailable Sari MUNOZ Attending Clinician [phone] DR Dion DURÁN. Attending Clinician Unavailable DR Calli DURÁN Admitting Clinician Unavailable Problems This patient has no known problems. Allergies, Adverse Reactions, Alerts This patient has no known allergies or adverse reactions. Social History Social Habit Start Date Stop Date Quantity Comments Source Sex Assigned At Female [facility] Smoking Status Start Date Stop Date Source Unknown if [facility] Medications This patient has no known medications. Procedures Procedure Date / Time Performed Performing Clinician Sourc e Infectious agent detection by 2020-10-01 00:00:00 [facility] nucleic acid (DNA or Encounters Start End Encounter Admission Attending Care Care Encounter Source Date/Time Date/Time Type Type Clinicians Facility Department ID 2020-10-01 2020-10-01 Outpatient [facility] [id number] [facility] 09:30:00 09:30:00 [facility] 2020-10-01 2020-10-01 [id number] 09:30:00 09:30:00 YANETH [facility] 2020-10-01 2020-10-01 [facility] [id number] Access 09:30:00 09:30:00 YANETH Guo [id number] [facility] [id number] 2020-10-01 2020-10-01 Outpatient [facility] [id number] Access 09:30:00 09:30:00 [id number] [facility] [id number] 2020-10-01 Outpatient TAMMY [facility] [id number] [facility] 00:00[facility]00 00:00:00 [facility] 2020-10-01 2020-10-01 Outpatient [facility] [id number] [facility] 00:00:00 00:00:00 YANETH Guo [id number] [facility] [id number] [facility] [id number] 2018-07-24 2018-07-24 Emergency E LILY DURÁN [facility] [id number] [facility]25[facility]00 [facility] Results Test Description Test Time Test Comments Results Result Comments Source Panel Description: SARS-CoV-2 (COVID-19) RNA [Presence] in 2 06:04:00 Unspecified specimen by MO with probe detection Test Item Value Reference Range Interpretation Comme nts SARS-CoV-2, MO (test Not Detected Not Detected Testin g was performed using the code = 00925-7) Aptima SARS- CoV-2 assay.This nucleic acid amplificat ion test was developed and i ts performancechar acteristics determined by untapt. Nucleic acidamp lification tests include PCR and [...] assay.< br/>
Performed by:
[facility] Sudhir (FELICE)

[facility] [id number] 08:04:00 Test Item Value Reference Range Interpretation [...] S zole (test code = sxt) U/S [id number] 16:20:34Right upper quadrant ultrasoundLocation Code: [id number] HISTORY: Abdominal painTechnique: Grayscaleand selected color Doppler [...] 1.4 cmrightrenal cyst.Mildly distended gallbladder without stones.U/S [id number] 16:20:34Right upper quadrant ultrasoundLocation Code: [id number] HISTORY: Abdominal painTechnique: Grayscaleand selected color Doppler [...] 1.4 cmrightrenal cyst.Mildly distended gallbladder without stones.U/S [id number] 16:18:11PELVIC ULTRASOUND:Location code: [id number] HISTORY: Pelvic painComparison: NoneTECHNIQUE: Transabdominal sonography of [...] A57) 0.482 uIU/mL 0.358-3.740 CT STONE PROTOCOL [id number] 13:13:26CT ABDOMEN AND PELVIS WITHOUT CONTRAST, RENAL STONE PROTOCOL:Location code: [id number] HISTORY: L flank painCOMPARISON: Left flank painTECHNIQUE: [...] is no ureteral calculus or hydronephrosis.COMPREHENSIVE METABOLIC [id number] 12:56:00 Test Item Value Reference Range Interpretation [...] 31A) 273 IU/L <=78 H AMYLASE AND [id number] 12:54:00 Test Item Value Reference Range Interpretation Comments AMYLASE (test code = 10A) 60 U/L 28-100 LIPASE (test code = 60A) 249 IU/L 73-393 SERUM [id number] 12:40:00 Test Item Value Reference Range Interpretation Comments PREG SRM (test code = PGS) NEGATIVE NEGATIVE URINALYSIS WITH [id number] 12:40:00 Test Item Value Reference Range Interpretation [...]
[2022-04-15 09:49] LABS: Urine Blood Negative (Negative); Urine Glucose Trace (Negative); Urine Protein Trace (Negative); Urine Specific Gravity 1.025 (1.005-1.030)
--- NOTE | 2022-04-15 10:45 | RAD REPORT ---
EXAM DESCRIPTION: CT - Pelvis Wo Cont - 04/15/2022 10:33 am CLINICAL HISTORY: Left hip pain COMPARISON: None. TECHNIQUE: Computed axial tomography of the pelvis was obtained. Coronal and sagittal reconstruction performed All CT scans are performed using dose optimization technique as appropriate and may include automated exposure control or mA/KV adjustment according to patient size. FINDINGS: No fracture or dislocation is seen. Muscles are normal size and density. No significant hip joint effusion No evidence of avascular necrosis IMPRESSION: Unremarkable CT left hip
--- NOTE | 2022-04-15 10:51 | RAD REPORT ---
EXAM DESCRIPTION: CTSpine Lumbar Wo Con04/15/2022 10:33 am CLINICAL HISTORY: Back pain with radiculopathy COMPARISON: April 14, 2022 x-ray TECHNIQUE: Computed axial tomography lumbar spine was obtained with coronal and sagittal reconstruct ion. All CT scans are performed using dose optimization technique as appropriate and may include automated exposure control or mA/KV adjustment according to patient size. FINDINGS: No fracture is seen. No dislocation is noted. Disc bulge, ligamentum flavum facet hypertrophy L4-5. Mild central spinal stenosis. Small right posterolateral disc herniation L5-S1 Small bilateral renal calculi IMPRESSION: Negative for a lumbar fracture. Spondylosis L4-5 resulting in mild central spinal stenosis Small right posterolateral disc herniation L5-S1 If clinically indicated further evaluation with MRI be obtained
[2022-04-15] MEDS ORDERED: MORPHINE 4 MG/ML SYR ONE (12:02)
[2022-04-15] MEDS ORDERED: KETOROLAC 30 MG/ML INJ ONE (12:02)
--- NOTE | 2022-04-15 12:25 | ER ---
Nurse's Notes [facility] Name: Ann Roman Age: 52 yrs Sex: Female : 1970 Arrival Date: 04/15/2022 Time: 08:40 Bed 12 Private MD: Diagnosis: Radiculopathy, lumbosacral region-left;Low back pain Presentation: 04/15 09:01 Chief complaint: Patient states: Seen yesterday, had an US done, did not have an xray jl7 done, adamant the she did not go back for an x-ray, pt continues with pain, pain medications not working. Pain to left hip, radiates down left leg. Coronavirus screen: At this time, the client does not indicate any symptoms associated with coronavirus-19. Ebola Screen: No symptoms or risks identified at this time. Initial Sepsis Screen: Does the patient meet any 2 criteria? No. Patient's initial sepsis screen is negative. Does the patient have a suspected source of infection? No. Patient's initial sepsis screen is negative. Risk Assessment: Do you want to hurt yourself or someone else? Patient reports no desire to harm self or others. Onset of symptoms was April 11, 2022. Care prior to arrival: None. 09:01 Method Of Arrival: Ambulatory jl7 09:01 Acuity: BHAKTI 4 jl7 Triage Assessment: 09:04 General: Appears in no apparent distress. uncomfortable, Behavior is calm, cooperative, jl7 appropriate for age. Pain: Complains of pain in left gluteus mauricio Pain radiates to left leg Pain currently is 8 out of 10 on a pain scale. Neuro: Level of Consciousness is awake, alert, obeys commands, Oriented to person, place, time, situation. Cardiovascular: Patient's skin is warm and dry. Respiratory: Airway is patent Respiratory effort is even, unlabored, Respiratory pattern is regular, symmetrical. Derm: Skin is pink, warm \T\ dry. 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 - Social history:: Smoking status: Patient denies any tobacco usage or history of. Screenin:13 Abuse screen: Denies threats or abuse. Denies injuries from another. Nutritional ld1 screening: No deficits noted. Tuberculosis screening: No symptoms or risk factors identified. Fall Risk None identified. Assessment: 12:13 General: Appears in no apparent distress. comfortable, Behavior is calm, cooperative, ld1 appropriate for age. Pain: Complains of pain in back Pain does not radiate. Pain currently is 9 out of 10 on a pain scale. Quality of pain is described as throbbing. Neuro: Level of Consciousness is awake, alert, obeys commands, Oriented to person, place, time, situation. Cardiovascular: Capillary refill < 3 seconds Patient's skin is warm and dry. Respiratory: Airway is patent Respiratory effort is even, unlabored. GI: Abdomen is flat, non-distended. : No signs and/or symptoms were reported regarding the genitourinary system. EENT: No signs and/or symptoms were reported regarding the EENT system. Derm: No signs and/or symptoms reported regarding the dermatologic system. Musculoskeletal: Range of motion: intact in all extremities. Vital Signs: 09:01 BP 138 / 79; Pulse 81; Resp 15; Temp 97.3; Pulse Ox 100% ; Weight 55.79 kg; Height 5 jl7 ft. 4 in. (162.56 cm); Pain 8/10; 12:13 BP 136 / 73; Pulse 80; Resp 18; Pulse Ox 100% on R/A; ld1 09:01 Body Mass Index 21.11 (55.79 kg, 162.56 cm) jl7 ED Course: 08:40 Patient arrived in ED. am2 09:04 Triage completed. jl7 09:04 Arm band placed on right wrist. jl7 09:14 Garcia Polo PA is PHCP. cp 09:14 Porfirio Pardo MD is Attending Physician. cp 10:35 CT Lumbar Spine Wo Con In Process Unspecified. EDMS 10:35 CT Pelvis wo Cont In Process Unspecified. EDMS 12:12 Alysha Rodriguez, AKUA is Primary Nurse. ld1 12:13 Patient has correct armband on for positive identification. Placed in gown. Bed in low ld1 position. Call light in reach. Side rails up X2. threat monitoring analyst on. Pulse ox on. NIBP on. Door closed. Noise minimized. Warm blanket given. 12:15 No provider procedures requiring assistance completed. Patient did not have IV access ld1 during this emergency room visit. Administered Medications: 12:12 Drug: Ketorolac 30 mg Route: IM; Site: right deltoid; ld1 12:12 Follow up: Response: No adverse reaction ld1 12:12 Drug: morphine 5 mg Route: IM; Site: left deltoid; ld1 12:13 Follow up: Response: No adverse reaction ld1 Medication: 12:13 VIS not applicable for this client. ld1 Outcome: 12:24 Discharge ordered by . fadumo 13:39 Discharged to home via wheelchair, with family. sherri 13:39 Condition: stable 13:39 Discharge instructions given to patient, family, Instructed on discharge instructions, follow up and referral plans. medication usage, Demonstrated understanding of instructions, follow-up care, medications, Prescriptions given X 2. 13:40 Patient left the ED. jl7 Signatures: Dispatcher [employer] EDMS Garcia Polo PA PA cp Leal, Jahala RN RN jl7 Cassi Rey am2 Alysha Rodriguez RN RN ld1
--- NOTE | 2022-04-15 12:25 | EDPHYS ---
Physician Documentation [facility] Name: Ann Roman Age: 52 yrs Sex: Female : 1970 Arrival Date: 04/15/2022 Time: 08:40 Bed 12 Private MD: ED Physician Porfirio Pardo HPI: 04/15 09:20 This 52 yrs old Female presents to ER via Ambulatory with complaints of Leg Pain, Low cp Back Pain. 09:20 The patient presents with pain that is acute, with no known mechanism of injury. cp 09:20 The symptoms are located in the low back. cp 09:20 Onset: The symptoms/episode began/occurred intermittent for past several months, cp persistent over past 4 days. The pain radiates to the left leg. Associated signs and symptoms: Pertinent negatives: abdominal pain, chest pain, constipation, dysuria, fever, incontinence, numbness, tingling, weakness, history of IV drug use. Patient reports she was seen in this ED yesterday with similar complaints and has US of left leg negative for DVT but no xrays of back. 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 - Social history:: Smoking status: Patient denies any tobacco usage or history of. ROS: 09:30 Constitutional: Negative for body aches, chills, fever, poor PO intake. cp 09:30 Eyes: Negative for injury, pain, redness, and discharge. cp 09:30 ENT: Negative for drainage from ear(s), ear pain, sore throat, difficulty swallowing, difficulty handling secretions. 09:30 Neck: Negative for pain with movement, pain at rest, stiffness. 09:30 Cardiovascular: Negative for chest pain, edema, palpitations. 09:30 Respiratory: Negative for cough, shortness of breath, wheezing. 09:30 Abdomen/GI: Negative for abdominal pain, nausea, vomiting, and diarrhea, constipation, bowel incontinence. 09:30 Back: Positive for pain at rest, pain with movement, Negative for injury or acute deformity. 09:30 : Negative for urinary symptoms, bladder incontinence. 09:30 MS/extremity: Positive for pain, of the left leg, Negative for injury or acute deformity, decreased range of motion, paresthesias. 09:30 Neuro: Negative for altered mental status, headache, numbness, weakness, saddle anesthesia. 09:30 All other systems are negative. Exam: 09:33 Constitutional: The patient appears in no acute distress, alert, awake, non-toxic, well cp developed, well nourished, uncomfortable. 09:33 Head/Face: Normocephalic, atraumatic. cp 09:33 Eyes: Periorbital structures: appear normal, Conjunctiva: normal, no exudate, no injection, Sclera: no appreciated abnormality, Lids and lashes: appear normal, bilaterally. 09:33 ENT: External ear(s): are unremarkable, Nose: is normal, Mouth: Lips: moist, Oral mucosa: moist. 09:33 Chest/axilla: Inspection: normal. 09:33 Cardiovascular: Rate: normal, Rhythm: regular, Edema: is not appreciated, JVD: is not appreciated. 09:33 Respiratory: the patient does not display signs of respiratory distress, Respirations: normal, no use of accessory muscles, no retractions, labored breathing, is not present, Breath sounds: are clear throughout, no decreased breath sounds, no stridor, no wheezing. 09:33 Abdomen/GI: Inspection: abdomen appears normal, Palpation: abdomen is soft and non-tender, in all quadrants. 09:33 Back: pain, that is moderate, of the left low back and left buttock, ROM is painful, with all movement, vertebral tenderness, is not appreciated, Straight leg raises: of both lower extremities does not illicit pain. 09:33 Neuro: Orientation: to person, place \T\ time. Mentation: is normal, Motor: moves all fours, strength is normal, Sensation: is normal, Gait: is steady, Deep tendon reflexes are 2+ (normal) in the right patellar, right Achilles, left patellar and left Achilles. Vital Signs: 09:01 BP 138 / 79; Pulse 81; Resp 15; Temp 97.3; Pulse Ox 100% ; Weight 55.79 kg; Height 5 jl7 ft. 4 in. (162.56 cm); Pain 8/10; 12:13 BP 136 / 73; Pulse 80; Resp 18; Pulse Ox 100% on R/A; ld1 09:01 Body Mass Index 21.11 (55.79 kg, 162.56 cm) jl7 MDM: 12:09 Patient medically screened. cp 12:24 Data reviewed: vital signs, nurses notes, radiologic studies, CT scan. cp 12:24 Counseling: I had a detailed discussion with the patient and/or guardian regarding: the cp historical points, exam findings, and any diagnostic results supporting the discharge/admit diagnosis, the need for outpatient follow up, a family practitioner. 12:24 Response to treatment: the patient's symptoms have markedly improved after treatment, cp and as a result, I will discharge patient. 04/15 09:50 Order name: Urine Dipstick-Ancillary; Complete Time: 12:09 EDMS 04/15 12:09 Interpretation: Normal except: UPROT Trace. cp 04/15 10:24 Order name: Test Urine - POC sp 04/15 09:19 Order name: CT Lumbar Spine Wo Con; Complete Time: 12:09 cp 04/15 12:10 Interpretation: Report reviewed. cp 04/15 09:19 Order name: CT Pelvis wo Cont; Complete Time: 12:09 cp 04/15 09:19 Order name: Urine Dipstick-Ancillary (obtain specimen); Complete Time: 09:49 cp 04/15 09:19 Order name: Urine Test (obtain specimen); Complete Time: 09:49 cp Administered Medications: 12:12 Drug: Ketorolac 30 mg Route: IM; Site: right deltoid; ld1 12:12 Follow up: Response: No adverse reaction ld1 12:12 Drug: morphine 5 mg Route: IM; Site: left deltoid; ld1 12:13 Follow up: Response: No adverse reaction ld1 Disposition: 15:24 Co-signature as Attending Physician, Porfirio Pardo MD I agree with the assessment and kdr plan of care. Disposition Summary: 04/15/22 12:24 Discharge Ordered Location: Home cp Problem: new cp Symptoms: have improved cp Condition: Stable cp Diagnosis - Radiculopathy, lumbosacral region - left cp - Low back pain cp Followup: cp - With: Private Physician - When: 2 - 3 days - Reason: Recheck today's complaints Discharge Instructions: - Discharge Summary Sheet cp - Acute Back Pain, Adult cp - Lumbosacral Radiculopathy cp - Heat Therapy cp - Back Exercises cp Forms: - Medication Reconciliation Form cp - Thank You Letter cp - Antibiotic Education cp - Prescription Opioid Use cp Prescriptions: - Lidoderm 5 % Topical adhesive patch,medicated - apply 1 patch by TOPICAL route once daily As needed; 15 patch; Refills: 0, cp Product Selection Permitted - Ultracet 37.5-325 mg Oral Tablet - take 1 tablet by ORAL route every 6 hours - for up to 5 days; do not exceed 8 cp tablets per day.; 15 tablet; Refills: 0, Product Selection Permitted Signatures: Dispatcher [employer] EDMD Porfirio Pardo MD MD kdr Garcia Polo PA PA cp Rancho Ross RN RN jl7 Alysha Rodriguez RN RN ld1 Corrections: (The following items were deleted from the chart) 04/16 13:32 04/15 09:20 The patient presents with pain that is chronic, cp cp
[2022-04-15 14:28] VITALS: TEMP 97.3; O2SAT 100
[2022-04-15 14:29] VITALS: BP 136/73
[2022-04-15 17:25] LABS: Urine Specific Gravity/Preg 1.025 (1.005-1.030)
== END 2022-04-15 13:40 | disposition home or self-care (01) ==
LOC: ER 08:24
DX: M54.17 Radiculopathy, lumbosacral region (principal); Z88.5 Allergy status to narcotic agent
CPT/HCPCS: 72131; 72192; 81003; 81025; 96372; 99284

== ENCOUNTER 2022-10-05 11:12 | Emergency (ER) | payer OTHER ==
--- OUTSIDE RECORDS SUMMARY | 2022-10-05 11:15 | XMS REPORT | Continuity of Care Document ---
:1970 Author Organization [facility] t Address [address] [place] [address] Care Team Providers Name Role Phone BECKY GAMINO Primary Care Physician Unavailable ALE MEZA Attending Clinician Unavailable DEMARIO GALVAN Attending Clinician Unavailable Ale Conroy Attending Clinician BECKY GAMINO Attending Clinician Unavailable Becky Mayes Attending Clinician Doctor Unassigned, [place] Attending Clinician Unavailable JESUS MONTAÑO Attending Clinician Unavailable Jesus Montñao MD Attending Clinician YANETH MUNOZ Attending Clinician Unavailable YANETH MUNOZ Attending Clinician [phone] DR LILY DURÁN. Attending Clinician Unavailable JESUS MONTAÑO Admitting Clinician Unavailable DR LILY DURÁN. Admitting Clinician Unavailable Payers Payer Name Policy Type Policy Number Effective Date Expiration Date S [employer] [id number] 2022 NON-CONTRACT 00:00:00 GENERIC Problems Condition Condition Condition Status Onset Resolution Last Treating Co mments Source Name Details Category Date Date Treatment Clinician Date Hypoxia Hypoxia Disease Active 2019- Univers 12-15 ity of 00:00: [address] Allergies, Adverse Reactions, Alerts Allergy Allergy Status Severity Reaction(s) Onset Inactive Treating Comm ents Source Name Type Date Date Clinician CODEINE DRUG Active High ITCHING 2014-11 Univers INGREDI 12-12 ity of 00:00: [place] [address] Medical Branch Codeine Propensi Active Itching 2014-11 Univer s ty to 1-24 ity of adverse 00:00: [place] reaction Medical s Branch Social History Social Habit Start Date Stop Date Quantity Comments Source History of Passive smoker University of tobacco use [place] [facility] History SDOH University o f Alcohol Frequency [facility] edical Branch History SDOH University o f Alcohol Std [place] [facility] Drinks Branch History SDOH University o f Alcohol Binge [place] [facility] Exposure to 2022-05-16 2022-05-26 Not sure University of SARS-CoV-2 00:00:00 11:04:00 [facility] (event) Branch Alcohol intake 2022-05-26 2022-05-26 Current drinker Unive rsity of 00:00:00 00:00:00 of alcohol [facility] (finding) Branch Tobacco use and 2022-05-12 2022-05-12 Smokeless tobacco Un iversity of exposure 00:00:00 00:00:00 non-user [facility] Alcohol Comment 2022-05-12 2022-05-12 occasional Universit y of 00:00:00 00:00:00 [facility] Sex Ass[birth year] Universit y of 00:00:00 00:00:00 [facility] Smoking Status Start Date Stop Date Source Unknown if ever smoked [facility] Never smoked tobacco [facility] Medications Ordered Filled Start Stop Current Ordering Indication Dosage Frequency Signature Comments Components Source Medication Medication Date Date Medication? Clinician (SIG) Name Name gabapentin Yes [id number] 200mg Take 2 Univers 100 mg 7-08 capsules [place] Medical times Branch daily as needed for Pain (scale 4-6). methylPREDN 2021-0 Yes [id number] Take by Univers ISolone 4 7-08 mouth ity of mg tablets 00:00: [place] CT[place]. Medical follow Branch package directions gabapentin 2021- Yes [id number] 200mg Take 2 Univers 100 mg 7-08 capsules [place] of capsule 00:00: [place] (two[place] Medical times Branch daily as needed for Pain (scale 4-6). methylPREDN 2021-0 Yes [id number] Take by Univers ISolone 4 7-08 mouth ity of mg tablets 00:00: [place] CTIONS. Medical follow Branch package directions gabapentin 2022-0 Yes [id number] 200mg Take 2 Univers 100 mg 7-08 capsules [place] of capsule 00:00: [place] (two[place] Medical times Branch daily as needed for Pain (scale 4-6). methylPREDN 2022-0 Yes [id number] Take by Univers ISolone 4 7-08 mouth ity of mg tablets 00:00: [place] CTIONS. Medical follow Branch package directions gabapentin 2022-0 Yes [id number] 200mg Take 2 Univers 100 mg 7-08 capsules [place] of capsule 00:00: [place] (two[place] Medical times Branch daily as needed for Pain (scale 4-6). methylPREDN 2022-0 Yes [id number] Take by Univers ISolone 4 7-08 mouth ity of mg tablets 00:00: [place] CTIONS. Medical follow Branch package directions gabapentin 2022-0 Yes [id number] 200mg Take 2 Univers 100 mg 7-08 capsules [place]y of capsule 00:00: [place] (two) Medical times Branch daily as needed for Pain (scale 4-6). methylPREDN 2022-0 Yes [id number] Take by Univers ISolone 4 7-08 mouth ity of mg tablets 00:00: [place] CTIONS. Medical follow Branch package directions gabapentin 2022-0 Yes [id number] 200mg Take 2 Univers 100 mg 7-08 capsules [place] of capsule 00:00: [place] (two) Medical times Branch daily as needed for Pain (scale 4-6). methylPREDN 2022-0 Yes [id number] Take by Univers ISolone 4 7-08 mouth ity of mg tablets 00:00: [place] CTIONS. Medical follow Branch package directions gabapentin 2022-0 Yes [id number] 200mg Take 2 Univers 100 mg 7-08 capsules ity of capsule 00:00: [place] (two[place] Medical times Branch daily as needed for Pain (scale 4-6). methylPREDN 2022-0 Yes [id number] Take by Univers ISolone 4 7-08 mouth ity of mg tablets 00:00: [place] CTIONS. Medical follow Branch package directions methylPREDN 2022-0 Yes [id number] Take by Univers ISolone 4 6-24 mouth ity of mg tablets 00:00: [place] CTIONS. Medical follow Branch package directions methylPREDN 2022-0 Yes [id number] Take by Univers ISolone 4 6-24 mouth ity of mg tablets 00:00: [place] CTIONS. Medical follow Branch package directions methylPREDN 2022-0 Yes [id number] Take by Univers ISolone 4 6-24 mouth ity of mg tablets 00:00: [place] CTIONS. Medical follow Branch package directions methylPREDN 2022-0 Yes [id number] Take by Univers ISolone 4 6-24 mouth ity of mg tablets 00:00: [place] CTIONS. Medical follow Branch package directions methylPREDN 2022-0 Yes [id number] Take by Univers ISolone 4 6-24 mouth ity of mg tablets 00:00: [place] CTIONS. Medical follow Branch package directions methylPREDN 2022-0 Yes [id number] Take by Univers ISolone 4 6-24 mouth ity of mg tablets 00:00: [place] CT[place]. Medical follow Branch package directions methylPREDN 2022-0 Yes [id number] Take by Univers ISolone 4 6-24 mouth ity of mg tablets 00:00: [place] CTIONS. Medical follow Branch package directions Vital Signs Vital Name Observation Time Observation Value Comments Source Body weight 2022-05-26 16:18:00 52.164 kg [facility] BMI 2022-05-26 16:18:00 19.74 kg/m2 [facility] Systolic blood 2022-05-26 16:18:00 130 mm[Hg] [facility]iver [facility] Diastolic blood 2022-05-26 16:18:00 60 mm[Hg] [facility] 2022-05-26 16:18:00 70 /min [facility] Body temperature 2022-05-26 16:18:00 36.72 [facility] Respiratory rate 2022-05-26 16:18:00 16 /min Univ ersity [facility] Body height 2022-05-26 16:18:00 162.6 cm Universi ty [facility] Procedures Procedure Date / Time Performing Clinician Source Performed AUTHORIZATION FOR 2022-06-12 05:01:00 Doctor Paige, [facility] RELEASE OF PHI [place] [facility] REFERRAL- 2022-06-01 05:01:00 Doctor Unassmarshall, [facility] REQUEST/RESPONSE [place] [facility] Infectious agent 2020-10-01 00:00:00 [facility] detection by nucleic acid (DNA or Encounters Start End Encounter Admission Attending Care Care Encounter Source Date/Time Date/Time Type Type Clinicians Facility Department ID 2022-08-04 2022-08-04 Outpatient Farzad MEZA [facility] [id number] Univers 09:00:00 09:00:00 ALE [facility] 2022-07-07 2022-07-07 Outpatient Farzad GALVAN [facility] [id number] Univers 16:20:00 16:20:00 DEMARIO [facility] 2022-07-04 2022-07-04 Telephone Derrick [facility] 1.2.840.114 [id number] Univers 00:00:00 00:00:00 Ale Gerber Y HEALTH 350.1.13.10 ity [place] [id number] [address] 2022-07-04 2022-07-[address] [facility] 1.2.840.114 [id number] Univers 00:00:00 00:00:00 Ale C HEALTH 350.1.13.10 i ty [place].2.[place] [id number] [address] OFFICE BUILDING 2022-06-30 2022-06-30 Outpatient Farzad GAMINO [facility] [id number] Univers 13:00:00 13:00:00 BECKY [facility] 2022-06-26 2022-06-[address] [facility] [id number] Univers 00:00:00 00:00:00 Becky A HEALTH 350.1.13.10 i ty of [place] 4.2.7.2.686 Hasmukh as ERNA?BLEA [id number] Pr easton [address] MEDICAL OFFICE BUILDING 2022-06-20 2022-06-20 Telephone KJ Meza 1.2.840.114 [id number] Univers 00:00:00 00:00:00 Ale Youngblood HEALTH 350.1.13.10 it[place] [id number] [address] 2022-06-12 2022-06-12 Orders Doctor VANESSA 1.2.840.114 [id number] Univers 00:00:00 00:00:00 Only Unassigned, AMBER 350.1.13.10 ity of [place] [facility] 4.2.7.2.686 Hasmukh as [id number] [address] 2022-06-01 2022-06-01 Orders Doctor VANESSA 1.2.840.114 [id number] Univers 00:00:00 00:00:00 Only Unassigned, AMBER 350.1.13.10 ity of [place] [facility] 4.2.7.2.686 Hasmukh as [id number] [address] 2022-05-26 2022-05-26 Office KJ Meza 1.2.840.114 [id number] Univers 11:00:00 11:30:00 Visit Ale Youngblood HEALTH 350.1.13.10 ity [place] [id number] [address] 2022-05-26 2022-05-26 Outpatient Farzad MEZA [facility] [id number] Univers 11:00:00 11:00:00 ALE itsukhjinder [facility] 2022-05-26 2022-05-26 Outpatient Farzad MEZA [facility] [id number] Univers 11:00:00 11:00:00 ALE ity [facility] 2022-05-12 2022-05-12 Office Stevenson [facility] 1.2.840.114 [id number] Univers 15:00:00 15:30:00 Visit Becky Lorenzana HEALTH 350.1.13.10 i ty of [place] 4.2.7.2.686 Hasmukh as ERNA?BLEA [id number] Pr easton FOWLER [address] [place] [address] MEDICAL OFFICE BUILDING 2022-05-12 2022-05-12 [facility] [id number] Univers 15:00:00 15:00:00 BECKY taveras [facility] 2022-05-12 2022-05-12 [facility] [id number] Univers 15:00:00 15:00:00 BECKY taveras [facility] 2022-05-12 2022-05-[address] [facility] E[facility] [id number] Univers 08:16:00 10:08:00 JESUS taveras [facility] 2022-05-12 2022-05-[address] [facility] [id number] Univers 08:16:00 10:08:00 Jesus WOODS 350.1.13.10 i ty of [place] 4.2.7.2.686 [place] [facility] [id number] [facility] [address] [place] 2022-05-12 2022-05-[address] [facility] ERT [id number] Univers 08:16:00 10:08:00 JESUS taveras [facility] 2022-05-12 2022-05-12 Orders Doctor VANESSA 1.2.840.114 [id number] Univers 00:00:00 00:00:00 Only Unassigned, AMBER 350.1.13.10 ity of [place] [facility] 4.2.7.2.686 Hasmukh as [id number] [facility] [address] [place] 2020-10-01 2020-10-01 Outpatient [facility] [id number] Access 09:30:00 09:30:00 [facility] 2020-10-01 2020-10-01 Outpatient MUNOZFORMERLY [facility] [id number] Access 09:30:00 09:30:00 YANETH [facility] 2020-10-01 2020-10-01 [facility] [id number] Access 09:30:00 09:30:00 YANETH Guo [id number] [facility] [id number] 2020-10-01 2020-10-01 Outpatient [facility] [id number] AccessH 09:30:00 09:30:00 [id number] [facility] [id number] 2020-10-01 Outpatient TAMMY, [facility] [id number] AccessH 00:00:00 00:00:00 YANETH [facility] 2020-10-01 2020-10-01 Outpatient TAMMY, [facility] [id number] Access 00:00:00 00:00:00 YANETH Guo [id number] [facility] [id number] 2018-07-24 2018-07-24 Emergency E LILY DURÁN [facility] [id number] [facility] 12:00:00 16:25:00 Medica l Center Results Test Description Test Time Test Comments Results Result Comments Source Panel Description: SARS-CoV-2 (COVID-19) RNA [Presence] in 2 06:04:00 Unspecified specimen by MO with probe detection Test Item Value Reference Range Interpretation Comme nts SARS-CoV-2, MO (test Not Detected Not Detected Testin g was performed using the code = 64005-4) Aptima SARS- CoV-2 assay.This nucleic acid amplificat ion test was developed and i ts performancechar acteristics determined by [employer]. Nucleic acidamp lification tests include PCR and [...] this assay.< br/>
Performed by:
[facility] Sudhir ()

Merged with [facility] [id number] 08:04:00 Test Item Value Reference Range Interpretation [...] S zole (test code = sxt) U/S [id number] 16:20:34Right upper quadrant ultrasoundLocation Code: [id number] HISTORY: Abdominal painTechnique: Grayscaleand selected color Doppler ultrasound of the abdomen wasperformed.Findings:The liver is normal in ech ogenicity. There is no mass or intrahepatic biliaryductal dilatation. Right liver span is 11.5cm.Thebladder appears mildly distended however there are no stones orsludge.Gallbladder wall is 3 mm. Common bile duct measures 5 mm. There is nopericholecystic fluid. Sonographic Catalan sign is negative.Theright kidney measures 10.4 x 3.5 x 4.6 cm. Mild right-sided hydronephrosisnoted along with cyst in the midpole measuring 1.2 x 1.4 cm.The visualized portions of the pancreas, aorta, and inferior vena cava areunremarkable. IMPRESSION: Mild fullness of the right renal collecting system with 1.4 cmright renal cyst.Mildly distended gallbladder without stones.U/S [id number] 16:20:34Right upper quadrant ultrasoundLocation Code: [id number] HISTORY: Abdominal painTechnique: Grayscaleand selected color Doppler ultrasound of the abdomen wasperformed.Findings:The liver is normal in echogenicity. There is no mass or intrahepatic biliaryductal dilatation. Right liver span is 11.5cm.Thebladder appears mildly distended however there are no stones orsludge.Gallbladder wall is 3 mm. Common bile duct measures 5 mm. There is nopericholecystic fluid. Sonographic Catalan sign is negative.Theright kidney measures 10.4 x 3.5 x 4.6 cm. Mild right-sided hydronephrosisnoted along with cyst in the midpole measuring 1.2 x 1.4 cm.The visualized portions of the pancreas, aorta, and inferior vena cava areunremarkable. IMPRESSION: Mild fullness of the right renal collecting system with 1.4 cmright renal cyst.Mildly distended gallbladder without stones.U/S [id number] 16:18:11PELVIC ULTRASOUND:Location code: [id number] HISTORY: Pelvic painComparison: NoneTECHNIQUE: Transabdominal sonography of the pelvis was performed followed byendovaginal scanning for better characterization of the ovaries. FINDINGS: The uterus is uniform in echogenicity measuring 7.5 x 4.1 x 6.1 cm. Theendometrium is unremarkable at 6 mm. The right ovary measures 2.4 x 1.8 x 2.3 cm. The left ovary measures 4.4 x 3.8x 4.8 cm with large complex cyst with diffuse low-level echoes measuring 4.1 x3.8 x 2.9 cm. There is no adnexal mass or free fluid. IMPRESSION:4.1 cm complex left ovarian cyst which couldrepresent hemorrhagic cyst orendometrioma. More aggressive lesion thought to be less likely.THYROID PANEL/SCREEN (TSH)2018-07-24 13:17:00 Test Item Value Reference Range Interpretation Comments TSH (test code = A57) 0.482 uIU/mL 0.358-3.740 CT STONE PROTOCOL [id number] 13:13:26CT ABDOMEN AND PELVIS WITHOUT CONTRAST, RENAL STONE PROTOCOL:Location code: [id number] HISTORY: L flank painCOMPARISON: Left flank painTECHNIQUE: Helical CT of the abdomen and pelvis was performed withoutcontrast. Thin section axial, sagittal and coronal images were obtained.Automatic exposure controlwas utilized. Total DLP: 400 mGycm.FINDINGS: There are multiple punctate, 2 to 3 mm parenchymal renal calculi bilaterallyalong with increased density in the medullary appearance consistent withmedullary nephrocalcinosis. There is no ureteral calculus or hydronephrosis.The visualized lung bases are clear. The unenhanced liver, gallbladder,adrenals, pancreas, and spleen are unremarkable.The unopacifiedloops of bowel demonstrate no focal thickening or dilatation.The appendix is visualized and is normal. There is no free intraperitoneal airor fluid. The abdominal aorta is normal in caliber and contour. There is noretroperitoneal adenopathy or mass. The urinary bladder is unremarkable.There is an ill-defined left adnexal mass measuring 4.8 x 2.6 x 3.9 cm. The bones, skin and surrounding soft tissues are unremarkable. IMPRESSION:1. 4.8 cm left adnexal mass, possibly ovarian or uterine related. Pelvicultrasound is recommended.2. Multiple punctate parenchymal renal calcifications along with medullarynephrocalcinosis bilaterally. There is no ureteral calculus or hydronephrosis.COMPREHENSIVE METABOLIC [id number] 12:56:00 Test Item Value Reference Range Interpretation [...] 31A) 273 IU/L <=78 H AMYLASE AND [id number] 12:54:00 Test Item Value Reference Range Interpretation Comments AMYLASE (test code = 10A) 60 U/L 28-100 LIPASE (test code = 60A) 249 IU/L 73-393 SERUM [id number] 12:40:00 Test Item Value Reference Range Interpretation Comments PREG SRM (test code = PGS) NEGATIVE NEGATIVE URINALYSIS WITH [id number] 12:40:00 Test Item Value Reference Range Interpretation [...] Previous ly reported as: URBC) 2 On 07/24/2018 12:40 By MF33 EPITH UR (test code = MANY /LPF FEW A UEPC) BACTERIA UR (test MANY /HPF NONE [...]
[2022-10-05 12:26] LABS: SARS-COV-2 RT PCR NEGATIVE (NEGATIVE)
--- NOTE | 2022-10-05 13:15 | EDPHYS ---
Physician Documentation [facility] Name: Ann Roman Age: 52 yrs Sex: Female : 1970 Arrival Date: 10/05/2022 Time: 11:15 Bed 11 Private MD: ED Physician Garcia Paige HPI: 10/05 11:45 This 52 yrs old Female presents to ER via Ambulatory with complaints of Flu Symptoms. jh7 11:45 Onset: The symptoms/episode began/occurred 4 day(s) ago. Associated signs and symptoms: jh7 Pertinent positives: congestion, cough, sore throat, Pertinent negatives: fever. Historical: - Allergies: 11:44 Codeine; tp1 - Home Meds: 11:44 None [Active]; tp1 - PMHx: 11:44 Endometrosis; Migraines; tp1 - PSHx: 11:44 uterine septum; tp1 - Immunization history:: Client reports having NOT received the Covid vaccine. - Social history:: Smoking status: Patient denies any tobacco usage or history of. ROS: 11:45 Constitutional: Negative for fever, chills, and weight loss, Eyes: Negative for injury, jh7 pain, redness, and discharge, Neck: Negative for injury, pain, and swelling, Cardiovascular: Negative for chest pain, palpitations, and edema, Abdomen/GI: Negative for abdominal pain, nausea, vomiting, diarrhea, and constipation, Back: Negative for injury and pain, MS/Extremity: Negative for injury and deformity, Skin: Negative for injury, rash, and discoloration, Neuro: Negative for headache, weakness, numbness, tingling, and seizure. 11:45 ENT: Positive for nasal discharge, sinus congestion, sore throat. 11:45 Respiratory: Positive for cough, Negative for shortness of breath, wheezing. 11:45 All other systems are negative. Exam: 11:45 Constitutional: This is a well developed, well nourished patient who is awake, alert, jh7 and in no acute distress. Head/Face: Normocephalic, atraumatic. Neck: Trachea midline, no thyromegaly or masses palpated, and no cervical lymphadenopathy. Supple, full range of motion without nuchal rigidity, or vertebral point tenderness. No Meningismus. Cardiovascular: Regular rate and rhythm with a normal S1 and S2. No gallops, murmurs, or rubs. Normal PMI, no JVD. No pulse deficits. Respiratory: Lungs have equal breath sounds bilaterally, clear to auscultation and percussion. No rales, rhonchi or wheezes noted. No increased work of breathing, no retractions or nasal flaring. Abdomen/GI: Soft, non-tender, with normal bowel sounds. No distension or tympany. No guarding or rebound. No evidence of tenderness throughout. Back: No spinal tenderness. No costovertebral tenderness. Full range of motion. Skin: Warm, dry with normal turgor. Normal color with no rashes, no lesions, and no evidence of cellulitis. MS/ Extremity: Pulses equal, no cyanosis. Neurovascular intact. Full, normal range of motion. Neuro: Awake and alert, GCS 15, oriented to person, place, time, and situation. Motor strength 5/5 in all extremities. Sensory grossly intact. Normal gait. 11:45 ENT: TM's: are normal, Nose: nasal drainage, and is seen coming from both nares, that is clear, Posterior pharynx: Postnasal drainage. Vital Signs: 11:34 BP 118 / 89; Pulse 87; Resp 16; Temp 98.5; Pulse Ox 97% on R/A; Weight 5.44 kg; Height tp1 5 ft. 4 in. (162.56 cm); 13:19 BP 132 / 77; Pulse 85; Resp 16; Pulse Ox 100% on R/A; tp1 11:34 Body Mass Index 2.06 (5.44 kg, 162.56 cm) tp1 MDM: 11:22 Patient medically screened. [facility] 13:20 Differential diagnosis: viral Infection, bacterial infection, URI. Data reviewed: vital [facility] signs, nurses notes. Data interpreted: Pulse oximetry: is 100 %. Interpretation: normal. Counseling: I had a detailed discussion with the patient and/or guardian regarding: the historical points, exam findings, and any diagnostic results supporting the discharge/admit diagnosis, to return to the emergency department if symptoms worsen or persist or if there are any questions or concerns that arise at home. 10/05 11:35 Order name: COVID-19/FLU A+B; Complete Time: 13:14 [facility] 10/05 11:35 Order name: Strep; Complete Time: 13:14 [facility] 10/05 12:01 Order name: Throat Culture EDOH Administered Medications: No medications were administered Disposition Summary: 10/05/22 13:14 Discharge Ordered Location: Home [facility] Problem: new [facility] Symptoms: are unchanged [facility] Condition: Stable [facility] Diagnosis - Acute upper respiratory infection, unspecified [facility] Followup: [facility] - With: Private Physician - When: 2 - 3 days - Reason: Recheck today's complaints Discharge Instructions: - Discharge Summary Sheet [facility] - Upper Respiratory Infection, Adult [facility] - Viral Respiratory Infection [facility] Forms: - Medication Reconciliation Form [facility] - Thank You Letter [facility] Prescriptions: - Bromfed DM 2-30-10 mg/5 mL Oral syrup - take 10 milliliter by ORAL route every 4 hours As needed; 240 milliliter; [facility] Refills: 0, Product Selection Permitted Addendum: 10/07/2022 08:31 Co-signature as Attending Physician, Garcia Paige MD I agree with the assessment and c dee plan of care. Signatures: Dispatcher [employer] EDGarcia Cole MD MD cha Parker, Tiffany, RN RN tp1 Beverly Brown, CASH SALES AUDIT CLERK CASH SALES AUDIT CLERK [facility] Corrections: (The following items were deleted from the chart) 10/05 11:45 11:44 PSHx: None; 1 tp1 11:45 11:44 PSHx: None; tp1 tp1
--- NOTE | 2022-10-05 13:15 | ER ---
Nurse's Notes [facility] Name: Ann Roman Age: 52 yrs Sex: Female : 1970 Arrival Date: 10/05/2022 Time: 11:15 Bed 11 Private MD: Diagnosis: Acute upper respiratory infection, unspecified Presentation: 10/05 11:34 Chief complaint: Patient states: sore throat, congestion, and cough. Has been around tp1 grandson who has been sick. denies pain. 11:34 Coronavirus screen: congestion, runny nose. Ebola Screen: Patient denies exposure to tp1 infectious person. Patient denies travel to an Ebola-affected area in the 21 days before illness onset. Initial Sepsis Screen: Does the patient meet any 2 criteria? No. Patient's initial sepsis screen is negative. Does the patient have a suspected source of infection? No. Patient's initial sepsis screen is negative. Risk Assessment: Do you want to hurt yourself or someone else? Patient reports no desire to harm self or others. Onset of symptoms was October 05, 2022. 11:34 Method Of Arrival: Ambulatory tp1 11:34 Acuity: BHAKTI 4 tp1 Triage Assessment: 11:34 General: Appears in no apparent distress. comfortable, Behavior is calm, cooperative. tp1 Pain: Denies pain. EENT: Reports nasal congestion. Neuro: Level of Consciousness is awake, alert, obeys commands, Oriented to person, place, time, situation. Cardiovascular: Patient's skin is warm and dry. Respiratory: Airway is patent Respiratory effort is even, unlabored. Respiratory: Reports cough that is. GI: Patient currently denies diarrhea, nausea, vomiting. : No signs and/or symptoms were reported regarding the genitourinary system. Derm: Skin is pink, warm \T\ dry. Musculoskeletal: Circulation, motion, and sensation intact. Historical: - Allergies: 11:44 Codeine; tp1 - Home Meds: 11:44 None [Active]; tp1 - PMHx: 11:44 Endometrosis; Migraines; tp1 - PSHx: 11:44 uterine septum; tp1 - Immunization history:: Client reports having NOT received the Covid vaccine. - Social history:: Smoking status: Patient denies any tobacco usage or history of. Screenin:19 Abuse screen: Denies threats or abuse. Denies injuries from another. Nutritional tp1 screening: No deficits noted. Tuberculosis screening: No symptoms or risk factors identified. Fall Risk None identified. Assessment: 11:46 General: see triage notes . tp1 12:35 Reassessment: Patient appears in no apparent distress at this time. No changes from tp1 previously documented assessment. Patient and/or family updated on plan of care and expected duration. Pain level reassessed. Patient is alert, oriented x 3, equal unlabored respirations, skin warm/dry/pink. Patient denies pain at this time. Vital Signs: 11:34 BP 118 / 89; Pulse 87; Resp 16; Temp 98.5; Pulse Ox 97% on R/A; Weight 5.44 kg; Height tp1 5 ft. 4 in. (162.56 cm); 13:19 BP 132 / 77; Pulse 85; Resp 16; Pulse Ox 100% on R/A; tp1 11:34 Body Mass Index 2.06 (5.44 kg, 162.56 cm) tp1 ED Course: 11:15 Patient arrived in ED. mr 11:22 [facility] FNP [facility] 11:22 Garcia Paige MD is Attending Physician. [facility] 11:30 Dionna Samayoa, AKUA is Primary Nurse. tp1 11:34 Arm band placed on. tp1 11:44 Triage completed. tp1 11:46 Patient has correct armband on for positive identification. Bed in low position. Call tp1 light in reach. 11:46 No provider procedures requiring assistance completed. Flu and/or RSV swab sent to lab. tp1 Strep swab sent to lab. Patient did not have IV access during this emergency room visit. Administered Medications: No medications were administered Medication: 13:19 VIS not applicable for this client. tp1 Outcome: 13:14 Discharge ordered by . [facility] 13:19 Discharged to home ambulatory. tp1 13:19 Condition: good 13:19 Discharge instructions given to patient, Instructed on discharge instructions, follow up and referral plans. medication usage, Demonstrated understanding of instructions, follow-up care, medications, Prescriptions given X 1. 13:20 Patient left the ED. tp1 Signatures: Rehana Chan mr Dionna Samayoa, RN RN tp1 Beverly Brown FNP [place] [id number] Corrections: (The following items were deleted from the chart) 11:44 PSHx: None; tp1 tp1 11:44 PSHx: None; tp1 tp1
[2022-10-05 13:33] VITALS: TEMP 98.5
[2022-10-05 13:34] VITALS: BP 132/77; O2SAT 100
== END 2022-10-05 13:20 | disposition home or self-care (01) ==
LOC: ER 11:12
DX: J06.9 Acute upper respiratory infection, unspecified (principal); Z20.822 Contact with and (suspected) exposure to COVID-19; Z88.6 Allergy status to analgesic agent
CPT/HCPCS: 87070; 87081; 0240U; 99283

== ENCOUNTER 2022-10-13 23:11 | Emergency (ER) | payer OTHER ==
--- OUTSIDE RECORDS SUMMARY | 2022-10-13 23:15 | XMS REPORT | Continuity of Care Document ---
:1970 Author Organization [facility] t Address [address] [place] [address] Care Team Providers Name Role Phone BECKY GAMINO Primary Care Physician Unavailable ALE MEZA Attending Clinician Unavailable DEMARIO GALVAN Attending Clinician Unavailable Ale Conroy Attending Clinician BECKY GAMINO Attending Clinician Unavailable Becky Mayes Attending Clinician Doctor Unassigned, [place] Attending Clinician Unavailable JESUS MONTAÑO Attending Clinician Unavailable Jesus Montaño MD Attending Clinician YANETH MUNOZ Attending Clinician Unavailable YANETH MUNOZ Attending Clinician [phone] DR LILY DURÁN. Attending Clinician Unavailable JESUS MONTAÑO Admitting Clinician Unavailable DR LILY DURÁN. Admitting Clinician Unavailable Payers Payer Name Policy Type Policy Number Effective Date Expiration Date S [employer] [id number] 2022 NON-CONTRACT 00:00:00 GENERIC Problems Condition Condition Condition Status Onset Resolution Last Treating Co mments Source Name Details Category Date Date Treatment Clinician Date Hypoxia Hypoxia Disease Active 2019- Univers 12-15 ity of 00:00: [address] Allergies, Adverse Reactions, Alerts Allergy Allergy Status Severity Reaction(s) Onset Inactive Treating Comm ents Source Name Type Date Date Clinician CODEINE DRUG Active High ITCHING 2014-11 Univers INGREDI 12-12 ity of 00:00: [place] [id number] Medical Branch Codeine Propensi Active Itching 2014-11 Univer s ty to 1-24 ity of adverse 00:00: [place] reaction Medical s Branch Social History Social Habit Start Date Stop Date Quantity Comments Source History of Passive smoker University of tobacco use [place] [facility] History SDOH University o f Alcohol Frequency [facility] edical Branch History SDOH University o f Alcohol Std [place] [facility] Drinks Branch History SDOH University o f Alcohol Binge [place] [facility] al [facility] Exposure to 2022-05-16 2022-05-26 Not sure University of SARS-CoV-2 00:00:00 11:04:00 [facility] (event) Branch Alcohol intake 2022-05-26 2022-05-26 Current drinker Unive rsity of 00:00:00 00:00:00 of alcohol [facility] (finding) Branch Tobacco use and 2022-05-12 2022-05-12 Smokeless tobacco Un iversity of exposure 00:00:00 00:00:00 non-user [facility] Alcohol Comment 2022-05-12 2022-05-12 occasional Universit y of 00:00:00 00:00:00 [facility] Sex Assigned At [birth year] Universit y of 00:00:00 00:00:00 [facility] Smoking Status Start Date Stop Date Source Unknown if ever smoked [facility] Never smoked tobacco [facility] Medications Ordered Filled Start Stop Current Ordering Indication Dosage Frequency Signature Comments Components Source Medication Medication Date Date Medication? Clinician (SIG) Name Name gabapentin Yes [id number] 200mg Take 2 Univers 100 mg 7-08 capsules [place] Medical times Branch daily as needed for Pain (scale 4-6). methylPREDN 2021-0 Yes [id number] Take by Univers ISolone 4 7-08 mouth it[place] of mg tablets 00:00: [place] CTIONS. Medical follow Branch package directions gabapentin 2021- Yes [id number] 200mg Take 2 Univers 100 mg 7-08 capsules [place] of capsule 00:00[place] (two[place] Medical times Branch daily as needed for Pain (scale 4-6). methylPREDN 2021-0 Yes [id number] Take by Univers ISolone 4 7-08 mouth ity of mg tablets 00:00: [place] CTIONS. Medical follow Branch package directions gabapentin 2022-0 Yes [id number] 200mg Take 2 Univers 100 mg 7-08 capsules [place] of capsule 00:00: [place] (two[place] Medical times Branch daily as needed for Pain (scale 4-6). methylPREDN 2022-0 Yes [id number] Take by Univers ISolone 4 7-08 mouth ity of mg tablets 00:00: [place] CTIONS. Medical follow Branch package directions gabapentin 2022-0 Yes [id number] 200mg Take 2 Univers 100 mg 7-08 capsules [place] of capsule 00:00: [place] (two[place] Medical times Branch daily as needed for Pain (scale 4-6). methylPREDN 2022-0 Yes [id number] Take by Univers ISolone 4 7-08 mouth ity of mg tablets 00:00: [place] CTIONS. Medical follow Branch package directions gabapentin 2022-0 Yes [id number] 200mg Take 2 Univers 100 mg 7-08 capsules [place] of capsule 00:00: [place] (two[place] Medical times Branch daily as needed for Pain (scale 4-6). methylPREDN 2022-0 Yes [id number] Take by Univers ISolone 4 7-08 mouth ity of mg tablets 00:00: [place] CTIONS. Medical follow Branch package directions gabapentin 2022-0 Yes [id number] 200mg Take 2 Univers 100 mg 7-08 capsules [place] of capsule 00:00: [place] (two) Medical times Branch daily as needed for Pain (scale 4-6). methylPREDN 2022-0 Yes [id number] Take by Univers ISolone 4 7-08 mouth ity of mg tablets 00:00: [place] CTIONS. Medical follow Branch package directions gabapentin 2022-0 Yes [id number] 200mg Take 2 Univers 100 mg 7-08 capsules [place] of capsule 00:00: [place] (two[place] Medical times Branch daily as needed for Pain (scale 4-6). methylPREDN 2022-0 Yes [id number] Take by Univers ISolone 4 7-08 mouth ity of mg tablets 00:00: [place] CTIONS. Medical follow Branch package directions methylPREDN 2022-0 Yes [id number] Take by Univers ISolone 4 6-24 mouth ity of mg tablets 00:00: [place] CTIONS. Medical follow Branch package directions methylPREDN 2022-0 Yes [id number] Take by Univers ISolone 4 6-24 mouth ity of mg tablets 00:00: [place] CT[place]. Medical follow Branch package directions methylPREDN 2022-0 Yes [id number] Take by Univers ISolone 4 6-24 mouth ity of mg tablets 00:00: [place] CTIONS. Medical follow Branch package directions methylPREDN 2022-0 Yes [id number] Take by Univers ISolone 4 6-24 mouth ity of mg tablets 00:00: [place] CTIONS. Medical follow Branch package directions methylPREDN 2022-0 Yes [id number] Take by Univers ISolone 4 6-24 mouth ity of mg tablets 00:00: [place] CT[place]. Medical follow Branch package directions methylPREDN 2022-0 Yes [id number] Take by Univers ISolone 4 6-24 mouth ity of mg tablets 00:00: [place] CT[place]. Medical follow Branch package directions methylPREDN 2022-0 Yes [id number] Take by Univers ISolone 4 6-24 mouth ity of mg tablets 00:00: [place] CTIONS. Medical follow Branch package directions Vital Signs Vital Name Observation Time Observation Value Comments Source Body weight 2022-05-26 16:18:00 52.164 kg [facility] BMI 2022-05-26 16:18:00 19.74 kg/m2 [facility] Systolic blood 2022-05-26 16:18:00 130 mm[Hg] Univer sity of [facility] Diastolic blood 2022-05-26 16:18:00 60 mm[Hg] [facility] 2022-05-26 16:18:00 70 /min [facility] Body temperature 2022-05-26 16:18:00 36.72 [facility] Respiratory rate 2022-05-26 16:18:00 16 /min Univ ersity [facility] Body height 2022-05-26 16:18:00 162.6 cm Universi ty [facility] Procedures Procedure Date / Time Performing Clinician Source Performed AUTHORIZATION FOR 2022-06-12 05:01:00 Doctor Paige, [facility] RELEASE OF PHI [place] [facility] REFERRAL- 2022-06-01 05:01:00 Doctor Unassmarshall, [facility] REQUEST/RESPONSE [place] [facility] Infectious agent 2020-10-01 00:00:00 [facility] detection by nucleic acid (DNA or Encounters Start End Encounter Admission Attending Care Care Encounter Source Date/Time Date/Time Type Type Clinicians Facility Department ID 2022-08-04 2022-08-04 Outpatient Farzad MEZA [facility] [id number] Univers 09:00:00 09:00:00 ALE [facility] 2022-07-07 2022-07-07 Outpatient Farzad GALVAN [facility] [id number] Univers 16:20:00 16:20:00 DEMARIO [facility] 2022-07-04 2022-07-04 Telephone Derrick [facility] 1.2.840.114 [id number] Univers 00:00:00 00:00:00 Ale Gerber Y HEALTH 350.1.13.10 it[place] [id number] [address] 2022-07-04 2022-07-04 [facility] 1.2.840.114 [id number] Univers 00:00:00 00:00:00 Ale C HEALTH 350.1.13.10 i [place] [id number] [address] OFFICE BUILDING 2022-06-30 2022-06-30 Outpatient Farzad GAMINO [facility] [id number] Univers 13:00:00 13:00:00 BECKY [facility] 2022-06-26 2022-06-26 [facility] [id number] Univers 00:00:00 00:00:00 Becky A HEALTH 350.1.13.10 i ty of [place] 4.2.7.2.686 Hasmukh as ERNA?BLEA [id number] Id easton [address] MEDICAL OFFICE BUILDING 2022-06-20 2022-06-20 Telephone KJ Meza [id number] Univers 00:00:00 00:00:00 Ale Youngblood HEALTH 350.1.13.10 [place] [id number] [address] 2022-06-12 2022-06-12 Orders Doctor VANESSA 1.2.840.114 [id number] Univers 00:00:00 00:00:00 Only Unassigned, AMBER 350.1.13.10 ity of [place] [facility] 4.2.7.2.686 Hasmukh as [id number] [address] 2022-06-01 2022-06-01 Orders Doctor VANESSA 1.2.840.114 [id number] Univers 00:00:00 00:00:00 Only Unassigned, AMBER 350.1.13.10 ity of [place] [facility] 4.2.7.2.686 Hasmukh as [id number] [address] 2022-05-26 2022-05-26 Office KJ Meza 1.2.840.114 [id number] Univers 11:00:00 11:30:00 Visit Ale Youngblood HEALTH 350.1.13.10 [place] [id number] [address] 2022-05-26 2022-05-26 Outpatient Farzad MEZA [facility] [id number] Univers 11:00:00 11:00:00 ALE itsukhjinder [facility] 2022-05-26 2022-05-26 Outpatient Farzad MEZA [facility] [id number] Univers 11:00:00 11:00:00 ALE ity [facility] 2022-05-12 2022-05-12 Office Stevenson [facility] 1.2.840.114 [id number] Univers 15:00:00 15:30:00 Visit Becky Lorenzana HEALTH 350.1.13.10 i ty of [place] 4.2.7.2.686 Hasmukh as ERNA?BLEA [id number] Id easton FOWLER [address] [place] [address] MEDICAL OFFICE BUILDING 2022-05-12 2022-05-12 Outpatient [facility] [id number] Univers 15:00:00 15:00:00 BECKY taveras [facility] 2022-05-12 2022-05-12 Outpatient [facility] [id number] Univers 15:00:00 15:00:00 BECKY taveras [facility] 2022-05-12 2022-05-12 Emergency [facility] E[facility] [id number] Univers 08:16:00 10:08:00 JESUS taveras [facility] 2022-05-12 2022-05-12 Emergency [facility] [id number] Univers 08:16:00 10:08:00 Jesus WOODS 350.1.13.10 i ty of [place] 4.2.7.2.686 [place] [facility] [id number] [facility] [address] 2022-05-12 2022-05-12 Emergency [facility] ERT [id number] Univers 08:16:00 10:08:00 JESUS taveras [facility] 2022-05-12 2022-05-12 Orders Doctor VANESSA 1.2.840.114 [id number] Univers 00:00:00 00:00:00 Only Unassigned, AMBER 350.1.13.10 ity of [place] [facility] 4.2.7.2.686 Hasmukh as [id number] [facility] [address] 2020-10-01 2020-10-01 Outpatient [facility] [id number] Access 09:30:00 09:30:00 [facility] 2020-10-01 2020-10-01 [facility] [id number] Access 09:30:00 09:30:00 YANETH [facility] 2020-10-01 2020-10-01 [facility] [id number] Access 09:30:00 09:30:00 YANETH Guo [id number] [facility] [id number] 2020-10-01 2020-10-01 Outpatient [facility] [id number] AccessH 09:30:00 09:30:00 [id number] [facility] [id number] 2020-10-01 Outpatient TAMMY, [facility] [id number] AccessH 00:00:00 00:00:00 YANETH [facility] 2020-10-01 2020-10-01 Outpatient TAMMY, [facility] [id number] Access 00:00:00 00:00:00 YANETH Guo [id number] [facility] [id number] 2018-07-24 2018-07-24 Emergency E LILY DURÁN [facility] [id number] [facility] 12:00:00 16:25:00 Medica l Center Results Test Description Test Time Test Comments Results Result Comments Source Panel Description: SARS-CoV-2 (COVID-19) RNA [Presence] in 2 06:04:00 Unspecified specimen by MO with probe detection Test Item Value Reference Range Interpretation Comme nts SARS-CoV-2, MO (test Not Detected Not Detected Testin g was performed using the code = 48869-6) Aptima SARS- CoV-2 assay.This nucleic acid amplificat ion test was developed and i ts performancechar acteristics determined by [email or web address]. Nucleic acidamp lification tests include PCR and [...] assay.< br/>
Performed by:
[facility] Sudhir ()

[facility] [id number] 08:04:00 Test Item Value Reference Range Interpretation [...] S zole (test code = sxt) U/S [id number] 16:20:34Right upper quadrant ultrasoundLocation Code: [id number] HISTORY: Abdominal painTechnique: Grayscaleand selected color Doppler [...] cmright renal cyst.Mildly distended gallbladder without stones.U/S [id number] 16:20:34Right upper quadrant ultrasoundLocation Code: [id number] HISTORY: Abdominal painTechnique: Grayscaleand selected color Doppler [...] cmright renal cyst.Mildly distended gallbladder without stones.U/S [id number] 16:18:11PELVIC ULTRASOUND:Location code: [id number] HISTORY: Pelvic painComparison: NoneTECHNIQUE: Transabdominal sonography of [...] A57) 0.482 uIU/mL 0.358-3.740 CT STONE PROTOCOL [id number] 13:13:26CT ABDOMEN AND PELVIS WITHOUT CONTRAST, RENAL STONE PROTOCOL:Location code: Q2YEORKFVO HISTORY: L flank painCOMPARISON: Left flank painTECHNIQUE: [...] is no ureteral calculus or hydronephrosis.COMPREHENSIVE METABOLIC [id number] 12:56:00 Test Item Value Reference Range Interpretation [...] 31A) 273 IU/L <=78 H AMYLASE AND [id number] 12:54:00 Test Item Value Reference Range Interpretation Comments AMYLASE (test code = 10A) 60 U/L 28-100 LIPASE (test code = 60A) 249 IU/L 73-393 SERUM [id number] 12:40:00 Test Item Value Reference Range Interpretation Comments PREG SRM (test code = PGS) NEGATIVE NEGATIVE URINALYSIS WITH [id number] 12:40:00 Test Item Value Reference Range Interpretation [...]
--- NOTE | 2022-10-13 23:33 | EDPHYS ---
Physician Documentation [facility] Name: Ann Roman Age: 52 yrs Sex: Female : 1970 Arrival Date: 10/13/2022 Time: 23:15 Bed 2 Private MD: ED Physician Jame Garibay HPI: 10/13 23:28 This 52 yrs old Female presents to ER via Unassigned with complaints of Blurred Vision, rn Scratch to eye. 23:28 The patient is experiencing pain, tearing, The patient sustained a scratch, to the rn right eye, caused by fingernail. Onset: The symptoms/episode began/occurred just prior to arrival. Duration: the symptoms are continuous. Aggravated by nothing. Alleviated by covering eye. Associated signs and symptoms: Pertinent positives: None. Pertinent negatives: fever, headache. Severity of symptoms: At their worst the symptoms were moderate in the emergency department the symptoms have improved. The patient has not experienced similar symptoms in the past. The patient has not recently seen a physician. Pt reports lives in , startled by a mouse, scratched own eye accidentally with fingernail. Reports pain to right eye and slightly blurred vision. . 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 - Family history:: not pertinent. - Social history:: Smoking status: unknown. - Hospitalizations: : No recent hospitalization is reported. ROS: 23:28 Constitutional: Negative for fever, chills, and weight loss, Eyes: + scratch to right rn eye Exam: 23:28 Constitutional: This is a well developed, well nourished patient who is awake, alert, rn and in no acute distress. Head/Face: Normocephalic, atraumatic. Eyes: right eye wit 12 o'clock superficial and irregular corneal abrasion, right pupil slightyl larger than left but reacts to direct and consensual light. Pupils round. Vital Signs: 23:30 BP 149 / 100; Pulse 78; Resp 16; Temp 98.3(O); Pulse Ox 99% on R/A; Weight 54.43 kg ll3 (R); Height 5 ft. 4 in. (162.56 cm) (R); 23:30 Body Mass Index 20.60 (54.43 kg, 162.56 cm) ll3 MDM: 23:15 Patient medically screened. rn 23:28 Differential diagnosis: Corneal abrasion of right eye. Data reviewed: vital signs, rn nurses notes, and as a result, I will discharge patient. Counseling: I had a detailed discussion with the patient and/or guardian regarding: the historical points, exam findings, and any diagnostic results supporting the discharge/admit diagnosis, the need for outpatient follow up, to return to the emergency department if symptoms worsen or persist or if there are any questions or concerns that arise at home. Response to treatment: the patient's symptoms have mildly improved after treatment, and as a result, I will discharge patient. Special discussion: I discussed with the patient/guardian in detail that at this point there is no indication for admission to the hospital. It is understood, however, that if the symptoms persist or worsen the patient needs to return immediately for re-evaluation. Administered Medications: 23:38 Drug: Tetracaine Drops 0.5 % 1 drops Route: Ophthalmic; Site: right eye; kd3 Disposition Summary: 10/13/22 23:32 Discharge Ordered Location: Home rn Problem: new rn Symptoms: have improved rn Condition: Stable rn Diagnosis - Injury of conjunctiva and corneal abrasion without foreign body, right eye rn Followup: rn - With: Private Physician - When: As needed - Reason: Recheck today's complaints, Re-evaluation by your physician Discharge Instructions: - Discharge Summary Sheet rn - Corneal Abrasion rn Forms: - Medication Reconciliation Form rn - Thank You Letter rn - 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 furnace roaster - Prescription Opioid Use rn Prescriptions: - Erythromycin 5 mg/gram (0.5 %) Ophthalmic Ointment - apply 1 centimeter by OPHTHALMIC route 2-3 times daily for 7 days; 1 tube; rn Refills: 0, Product Selection Permitted Signatures: Jame Garibay MD MD rn Loubet, Lynsea, RN RN ll3 Michelle Villanueva, RN RN kd3 Corrections: (The following items were deleted from the chart) 23:31 23:28 Constitutional: Negative for fever, chills, and weight loss, Eyes: + 12 o'clock rn superficial and irregular corneal abrasion, rigth pupil slightyl larger than left but reacts to direct and consensual light. Pupils round. rn 23:31 23:28 Constitutional: This is a well developed, well nourished patient who is awake, rn alert, and in no acute distress. Head/Face: Normocephalic, atraumatic. Eyes: Pupils equal round and reactive to light, extra-ocular motions intact. Lids and lashes normal. Conjunctiva and sclera are non-icteric and not injected. Cornea within normal limits. Periorbital areas with no swelling, redness, or edema. rn
--- NOTE | 2022-10-13 23:33 | ER ---
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 Coronavirus screen: Vaccine status: Patient reports receiving the 2nd dose of the covid vaccine. At this time, the client does not indicate any symptoms associated with coronavirus-19. Ebola Screen: No symptoms or risks identified at this time. Initial Sepsis Screen: Does the patient meet any 2 criteria? No. Patient's initial sepsis screen is negative. Does the patient have a suspected source of infection? No. Patient's initial sepsis screen is negative. Risk Assessment: Do you want to hurt yourself or someone else? Patient reports no desire to harm self or others. Onset of symptoms was October 13, 2022. 23:30 Method Of Arrival: Ambulatory ll3 23:30 Acuity: BHAKTI 4 ll3 Triage Assessment: 23:38 General: Appears in no apparent distress. Behavior is calm, cooperative. Pain: kd3 Complains of pain in right eye. Neuro: Level of Consciousness is awake, alert, obeys commands, Oriented to person, place, time, situation. Cardiovascular: Patient's skin is warm and dry. Respiratory: Airway is patent Trachea midline Respiratory effort is even, unlabored, Respiratory pattern is regular, symmetrical. 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 - Family history:: not pertinent. - Social history:: Smoking status: unknown. - Hospitalizations: : No recent hospitalization is reported. Screenin:38 Abuse screen: Denies threats or abuse. Denies injuries from another. Nutritional kd3 screening: No deficits noted. Tuberculosis screening: No symptoms or risk factors identified. Fall Risk None identified. Vital Signs: 23:30 BP 149 / 100; Pulse 78; Resp 16; Temp 98.3(O); Pulse Ox 99% on R/A; Weight 54.43 kg ll3 (R); Height 5 ft. 4 in. (162.56 cm) (R); 23:30 Body Mass Index 20.60 (54.43 kg, 162.56 cm) ll3 ED Course: 23:15 Patient arrived in ED. bp1 23:15 Jame Garibay MD is Attending Physician. rn 23:29 Michelle Villanueva, AKUA is Primary Nurse. kd3 23:32 Triage completed. ll3 23:32 Arm band placed on Patient placed in an exam room, on a stretcher, on pulse oximetry. ll3 23:38 Patient has correct armband on for positive identification. kd3 23:38 No provider procedures requiring assistance completed. Patient did not have IV access kd3 during this emergency room visit. Administered Medications: 23:38 Drug: Tetracaine Drops 0.5 % 1 drops Route: Ophthalmic; Site: right eye; kd3 Medication: 23:39 VIS not applicable for this client. kd3 Outcome: 23:32 Discharge ordered by . rn 23:38 Discharged to home ambulatory. kd3 23:38 Condition: stable 23:38 Discharge instructions given to patient, family, Instructed on discharge instructions, follow up and referral plans. medication usage, Demonstrated understanding of instructions, follow-up care, medications, Prescriptions given X 1. 23:39 Patient left the ED. kd3 Signatures: Jame Garibay MD MD rn Paniauga, Brittany bp1 Loubet, Lynsea, RN RN 3 Michelle Villanueva, AKUA FATIMA kd3
[2022-10-13] MEDS ORDERED: TETRACAINE HCL 0.5% 4ML OPTH ONE ×2 (23:34)
[2022-10-13 23:57] VITALS: BP 149/100; TEMP 98.3; O2SAT 99
== END 2022-10-13 23:39 | disposition home or self-care (01) ==
LOC: ER 23:11
DX: S05.01XA Injury of conjunctiva and corneal abrasion without foreign body, right eye, initial encounter (principal); Z88.5 Allergy status to narcotic agent
CPT/HCPCS: 99283

== ENCOUNTER 2023-08-06 14:07 | Emergency (ER) | payer OTHER, SELFPAY ==
--- OUTSIDE RECORDS SUMMARY | 2023-08-06 14:27 | XMS REPORT | Continuity of Care Document ---
:1970 Author Organization [facility] t Address [address] [place] [address] Care Team Providers Name Role Phone Becky Mayes Primary Care Physician VIOLET JOHNSON Attending Clinician Unavailable Violet Johnson DO Attending Clinician Becky Mayes Attending Clinician ALE MEZA Attending Clinician Unavailable DEMARIO GALVAN Attending Clinician Unavailable Ale Conroy Attending Clinician BECKY GAMINO Attending Clinician Unavailable Doctor Unassigned, [place] Attending Clinician Unavailable JESUS MONTAÑO Attending Clinician Unavailable Jesus Montaño MD Attending Clinician YANETH MUNOZ Attending Clinician Unavailable YANETH MUNOZ Attending Clinician [phone] DR LILY DURÁN Attending Clinician Unavailable JESUS MONTAÑO Admitting Clinician Unavailable DR LILY DURÁN Admitting Clinician Unavailable Payers Payer Name Policy Type Policy Number Effective Date Expiration Date S ankita COMMERCIAL [id number] 2022 NON-CONTRACT 00:00:00 GENERIC Problems Condition Condition Condition Status Onset Resolution Last Treating Co mments Source Name Details Category Date Date Treatment Clinician Date Hypoxia Hypoxia Disease Active Univers 12-15 ity of 00:00: [place] 00 Medical Branch Allergies, Adverse Reactions, Alerts Allergy Allergy Status Severity Reaction(s) Onset Inactive Treating Comm ents Source Name Type Date Date Clinician CODEINE DRUG Active High ITCHING 2014-11 Univers INGREDI 12-12 ity of 00:00: [place] 00 Medical Branch Codeine Propensi Active Itching 2014-11 Univer s ty to 12-12 ity of adverse 00:00: [place] reaction 00 Medical s Branch Social History Social Habit Start Date Stop Date Quantity Comments Source History of Passive smoker University of tobacco use [place] [facility] [place] History SDMT University o f Alcohol Frequency [place] [facility] History SDOH University o f Alcohol Std [place] [facility] Drinks Branch History SDOH University o f Alcohol Binge [place] [facility] Exposure to 2023-04-08 2023-04-18 Not sure University of SARS-CoV-2 00:00:00 11:26:00 [facility] (event) Branch Alcohol intake 2023-04-18 2023-04-18 Current drinker Unive rsity of 00:00:00 00:00:00 of alcohol [facility] (finding) [place] Tobacco use and 2022-05-12 2022-05-12 Smokeless tobacco Un iversity of exposure 00:00:00 00:00:00 non-user [facility] Alcohol Comment 2022-05-12 2022-05-12 occasional Universit y of 00:00:00 00:00:00 [facility] Sex Ass[birth year] Universit y of 00:00:00 00:00:00 [facility] Smoking Status Start Date Stop Date Source Unknown if ever smoked [facility] Never smoked tobacco [facility] Medications Ordered Filled Start Stop Current Ordering Indication Dosage Frequency Signature Comments Components Source Medication Medication Date Date Medication? Clinician (SIG) Name Name ketorolac No 30mg 30 mg, Unive rs (TORADOL) 04-18 Slow IV ity of injection 17:00: 16:19 Push, [place] 30 mg 00 :00 ONCE, 1 Medical dose, On Branch 04/18/23 at 1200, Routine NaCl 0.9% No 1000mL at 999 Uni vers (NS) bolus 04-18 mL/hr, ity of infusion 17:00: 16:59 1,000 mL, Hasmukh as 1,000 mL 00 :00 IV Medical Infusion, Branch ONCE, 1 dose, On Sun04/18/23 at 1200, ROSALVA diphenhydrA 2022- No 25mg 25 mg, Uni vers MINE 04-18 Slow IV ity of (BENADRYL) 16:15: 16:19 Push, [place] injection 00 :00 ONCE, 1 Medical 25 mg dose, On Branch Sun04/18/23 at 1115, STAT metoclopram 0 2022- No 10mg 10 mg, Uni vers megan HCl 04-18 Slow IV ity of (REGLAN) 16:15: 16:18 Push, [place] injection 00 :00 ONCE, 1 Medical 10 mg dose, On Branch Sun04/18/23 at 1115, ROSALVA sulfamethox 2022-0 2022- No [id number] 1{tbl} Take 1 Univers azole-trime 04-1804 tablet by it y of thoprim 00:00: 04:59 mouth [place] 800-160 mg 00 :00 every 12 Medic al per tablet (twelve) Branc h hours for 3 days. methylPREDN 2021-0 Yes [id number] Take by Univers ISolone 4 7-08 mouth ity of mg tablets 00:00: [place]INSTRU [place] CTIONS. Medical follow Branch package directions gabapentin 2021-0 Yes [id number] 200mg Take 2 Univers 100 mg 7-08 capsules [place] of capsule 00:00: [place] mouth 2 [place] (two) Medical times Branch daily as needed for Pain (scale 4-6). methylPREDN 2022-0 Yes [id number] Take by Univers ISolone 4 7-08 mouth ity of mg tablets 00:00: [place]INSTRU [place] CTIONS. Medical follow Branch package directions gabapentin 2022-0 Yes [id number] 200mg Take 2 Univers 100 mg 7-08 capsules ity of capsule 00:00: [place] 2 [place] (two) Medical times Branch daily as needed for Pain (scale 4-6). methylPREDN 2022-0 Yes [id number] Take by Univers ISolone 4 7-08 mouth ity of mg tablets 00:00: [place]INSTRU [place] CTIONS. Medical follow Branch package directions gabapentin 2022-0 Yes [id number] 200mg Take 2 Univers 100 mg 7-08 capsules ity of capsule 00:00: [place] mouth 2 [place] (two) Medical times Branch daily as needed for Pain (scale 4-6). methylPREDN 2022-0 Yes [id number] Take by Univers ISolone 4 7-08 mouth ity of mg tablets 00:00: [place]-INSTRU [place] CTIONS. Medical follow Branch package directions gabapentin 2022-0 Yes [id number] 200mg Take 2 Univers 100 mg 7-08 capsules ity of capsule 00:00: [place] mouth 2 [place] (two) Medical times Branch daily as needed for Pain (scale 4-6). methylPREDN 2022-0 Yes [id number] Take by Univers ISolone 4 7-08 mouth ity of mg tablets 00:00: [place]-INSTRU [place] CTIONS. Medical follow Branch package directions gabapentin 2022-0 Yes [id number] 200mg Take 2 Univers 100 mg 7-08 capsules ity of capsule 00:00: [place] mouth 2 [place] (two) Medical times Branch daily as needed for Pain (scale 4-6). methylPREDN 2022-0 Yes [id number] Take by Univers ISolone 4 7-08 mouth ity of mg tablets 00:00: SEE-INSTRU [place] CTIONS. Medical follow Branch package directions gabapentin 2022-0 Yes [id number] 200mg Take 2 Univers 100 mg 7-08 capsules ity of capsule 00:00: [place] mouth 2 [place] (two) Medical times Branch daily as needed for Pain (scale 4-6). methylPREDN 2022-0 Yes [id number] Take by Univers ISolone 4 7-08 mouth ity of mg tablets 00:00: [place]-INSTRU [place] CTIONS. Medical follow Branch package directions gabapentin 2022-0 Yes [id number] 200mg Take 2 Univers 100 mg 7-08 capsules ity of capsule 00:00: [place] mouth 2 [place] (two) Medical times Branch daily as needed for Pain (scale 4-6). methylPREDN 2022-0 Yes [id number] Take by Univers ISolone 4 7-08 mouth ity of mg tablets 00:00: [place]-INSTRU [place] CTIONS. Medical follow Branch package directions gabapentin 2022-0 Yes [id number] 200mg Take 2 Univers 100 mg 7-08 capsules ity of capsule 00:00: [place] mouth 2 [place] 00 (two) Medical times Branch daily as needed for Pain (scale 4-6). methylPREDN 2022-0 Yes [id number] Take by Univers ISolone 4 7-08 mouth ity of mg tablets 00:00: SEE-INSTRU [place] CTIONS. Medical follow Branch package directions gabapentin 2022-0 Yes [id number] 200mg Take 2 Univers 100 mg 7-08 capsules ity of capsule 00:00: [place] mouth 2 [place] 00 (two) Medical times Branch daily as needed for Pain (scale 4-6). methylPREDN 2022-0 Yes [id number] Take by Univers ISolone 4 6-24 mouth ity of mg tablets 00:00: SEE-INSTRU [place] CTIONS. Medical follow Branch package directions methylPREDN 2022-0 Yes [id number] Take by Univers ISolone 4 6-24 mouth ity of mg tablets 00:00: [place]-INSTRU [place] CTIONS. Medical follow Branch package directions methylPREDN 2022-0 Yes [id number] Take by Univers ISolone 4 6-24 mouth ity of mg tablets 00:00: [place]-INSTRU [place] CTIONS. Medical follow Branch package directions methylPREDN 2022-0 Yes [id number] Take by Univers ISolone 4 6-24 mouth ity of mg tablets 00:00: SEE-INSTRU [place] CTIONS. Medical follow Branch package directions methylPREDN 2022-0 Yes [id number] Take by Univers ISolone 4 6-24 mouth ity of mg tablets 00:00: SEE-INSTRU [place] CTIONS. Medical follow Branch package directions methylPREDN 2022-0 Yes [id number] Take by Univers ISolone 4 6-24 mouth ity of mg tablets 00:00: SEE-INSTRU [place] CTIONS. Medical follow Branch package directions methylPREDN 2022-0 Yes [id number] Take by Univers ISolone 4 6-24 mouth ity of mg tablets 00:00: SEE-INSTRU [place] CTIONS. Medical follow Branch package directions methylPREDN 2022-0 Yes [id number] Take by Univers ISolone 4 6-24 mouth ity of mg tablets 00:00: SEE-INSTRU [place] CTIONS. Medical follow Branch package directions methylPREDN 2022-0 Yes [id number] Take by Univers ISolone 4 6-24 mouth ity of mg tablets 00:00: SEE-INSTRU [place] 00 CTIONS. Medical follow Branch package directions Vital Signs Vital Name Observation Time Observation Value Comments Source Systolic blood 2023-04-18 16:02:00 171 mm[Hg] Univer sity of pressure [facility] Diastolic blood 2023-04-18 16:02:00 89 mm[Hg] [facility] 2023-04-18 16:02:00 70 /min Universi [facility] Body temperature 2023-04-18 16:02:00 36.61 Patsy [facility] Respiratory rate 2023-04-18 16:02:00 20 /min [facility] Body height 2023-04-18 16:02:00 [facility] 2023-04-18 16:02:00 56.7 kg [facility] BMI 2023-04-18 16:02:00 21.46 kg/m2 [facility] Oxygen saturation in 2023-04-18 16:02:00 98 /min [facility] Arterial blood by [facility] [place] Pulse oximetry Branch Systolic blood 2022-05-26 16:18:00 130 mm[Hg] [facility] blood 2022-05-26 16:18:00 60 mm[Hg] [facility] Heart rate 2022-05-26 16:18:00 70 /min [facility] Body temperature 2022-05-26 16:18:00 36.72 Patsy [facility] Respiratory rate 2022-05-26 16:18:00 16 /min [facility] Body height 2022-05-26 16:18:00 162.6 cm Universi [facility] Body weight 2022-05-26 16:18:00 52.164 kg [facility] BMI 2022-05-26 16:18:00 19.74 kg/m2 [facility] Procedures Procedure Date / Time Performing Clinician Source Performed POCT GLUCOSE (AUTOMATED) 2023-04-18 16:13:00 Violet Johnson [facility] URINALYSIS 2023-04-18 16:10:00 Violet [facility] CONSENT/REFUSAL FOR 2023-04-18 15:58:14 Doctor Paige [facility] DIAGNOSIS AND TREATMENT [place] [facility] AUTHORIZATION FOR 2022-06-12 05:01:00 Doctor Paige [facility] RELEASE OF PHI [place] [facility] REFERRAL- 2022-06-01 05:01:00 Doctor Paige [facility] REQUEST/RESPONSE [place] [facility] Infectious agent 2020-10-01 00:00:00 [facility] detection by nucleic acid (DNA or Encounters Start End Encounter Admission Attending Care Care Encounter Source Date/Time Date/Time Type Type Clinicians Facility Department ID 2023-04-18 2023-04-18 Emergency X ALEX [facility] ERT [id number] Univers 11:04:00 12:01:00 VIOLTE taveras [facility] 2023-04-18 2023-04-18 Emergency Alex [facility] [id number] Univers 11:04:00 12:01:00 Violet WOODS 350.1.13.10 ity [facility] 4.2.7.2.686 [place] [facility] [id number] [address] 2022-11-28 2022-11-28 Telephone Stevenson [facility] [id number] Univers 00:00:00 00:00:00 [facility] [address].1.13[address] [facility] 4.2.7.2.686 Hasmukh as ERNA?BLEA [id number] Nd easton [address] MEDICAL OFFICE BUILDING 2022-08-04 2022-08-04 Outpatient Farzad MEZA [facility] [id number] Univers 09:00:00 09:00:00 ALE taveras [facility] 2022-07-07 2022-07-07 Outpatient Farzad GALVAN [facility] [id number] Univers 16:20:00 16:20:00 DEMARIO taveras [facility] 2022-07-04 2022-07-04 Telephone KJ Meza 1.2.840.114 [id number] Univers 00:00:00 00:00:00 Ale C Y HEALTH 350.1.13.10 ity of [place]2.[place].2.[place] [id number] [address] 2022-07-04 2022-07-04 Telephone Derrick [facility] 1.2.840.114 [id number] Univers 00:00:00 00:00:00 Ale C HEALTH 350.1.13.10 i ty [place]2.7.2.686 [place] [id number] [address] OFFICE BUILDING 2022-06-30 2022-06-30 Outpatient [facility] [id number] Univers 13:00:00 13:00:00 BECKY ity [facility] 2022-06-26 2022-06-26 [facility] [id number] Univers 00:00:00 00:00:00 Becky A HEALTH 350.1.13.10 i ty of [place] 4.2.7.2.686 Hasmukh as ERNA?BLEA [id number] [address] OFFICE [facility] 2022-06-20 2022-06-20 Telephone MONICA Meza 1.2.840.114 [id number] Univers 00:00:00 00:00:00 Ale Gerber Y HEALTH 350.1.13.10 ity of [place]2.7.2.[place] [id number] [address] 2022-06-12 2022-06-12 Orders Doctor VANESSA 1.2.840.114 [id number] Univers 00:00:00 00:00:00 Only Unassigned, AMBER 350.1.13.10 ity of [place] H[facility]PITAL 4.2.7.2.686 Hasmukh as [id number] [address] 2022-06-01 2022-06-01 Orders Doctor VANESSA 1.2.840.114 [id number] Univers 00:00:00 00:00:00 Only Unassigned, AMBER 350.1.13.10 ity of [place] HOSPITAL 4.2.7.2.686 Hasmukh as [id number] [address] 2022-05-26 2022-05-26 Office Derrick KJ 1.2.840.114 [id number] Univers 11:00:00 11:30:00 Visit Ale Youngblood HEALTH 350.1.13.10 ity of [facility] 4.2.7.2.686 [place] [id number] [facility] [address] [place] 2022-05-26 2022-05-[address] [facility] [id number] Univers 11:00:00 11:00:00 [facility] 2022-05-26 2022-05-26 [address] [facility] [id number] Univers 11:00:00 11:00:00 [facility] 2022-05-12 2022-05-12 [facility] 1.2.840.114 [id number] Univers 15:00:00 15:30:00 Visit Becky Lorenzana [facility] 350.1.13.10 i ty of [facility] 4.2.7.2.686 Hasmukh as ERNA?BLEA [id number] Nd lorrie[address] MEDICAL OFFICE BUILDING 2022-05-12 2022-05-12 Outpatient [facility] [id number] Univers 15:00:00 [facility]:00[facility] 2022-05-12 Out[facility] [id number] Univers 15:00:00 15:00:00 [facility] 2022-05-12 2022-05-12 [facility] [id number] Univers 08:16:00 10:08:00 [facility] 2022-05-12 2022-05-12 [facility] [id number] Univers 08:16:00 10:08:00 Jesus WOODS 350.1.13.10 i ty of [place] 4.2.7.2.686 [place] [id number] [facility] [address] [place] 2022-05-12 2022-05-12 Emergency [facility] [id number] Univers 08:16:00 10:08:00 JESUS taveras [facility] 2022-05-12 2022-05-12 Orders Doctor VANESSA 1.2.840.114 [id number] [facility] 00:00:00 00:00:00 Only Unassigned, AMBER 350.1.13.10 [facility] 4.2.7.2.686 Hasmukh as [id number] [address] 2020-10-01 2020-10-[address] [facility] [id number] Access 09:30:00 09:30:00 [facility] 2020-10-01 2020-10-01 Outpatient TAMMY, [facility] [id number] Access 09:30:00 09:30:00 YANETH [facility] 2020-10-01 2020-10-01 Outpatient TAMMY, [facility] [id number] Access 09:30:00 09:30:00 YANETH Guo [id number] 2020-10-01 2020-10-01 Outpatient [facility] [id number] Access 09:30:00 09:30:00 [id number] [facility] [id number] 2020-10-01 Outpatient TAMMY, [facility] [id number] Access 00:00:00 00:00:00 YANETH [facility] 2020-10-01 2020-10-01 Outpatient TAMMY, [facility] [id number] Access 00:00:00 00:00:00 YANETH Guo [id number] 2018-07-24 2018-07-24 Emergency E LILY DURÁN [facility] [id number] [place] 12:00:00 16:25:00 Medica l Center Results Test Description Test Time Test Comments Results Result Comments Source POCT GLUCOSE (AUTOMATED) 2023-04-18 16:14:10 Test Item Value Reference Range Interpretation Comme nts POCT GLU (test code = 4416131371) 109 mg/dL 70-110 Lab Interpretation (test code = 52764-7) [facility] >30DAYS[facility]2023-04-18 16:13:00 Test Item Value Reference Range Interpretation Comments POCT Glu (age>30days) (test code = 109 mg/dL 70-110 3342) Lab Interpretation (test code = Normal 36601-8) [facility] Description: SARS-CoV-2 (COVID-19) RNA [Presence] in Unspecified specimen by [place] with probe [id number] 06:04:00 Test Item Value Reference Range Interpretation Comments SARS-CoV-2 Not Detected Not Detected Testing was per formed using the , [place] Aptima SARS-CoV -2 assay.This (test code nucleic acid am plification test = 50874-1) was developed a nd its performancechar acteristics determined by [place]. [facility] acidamplificati on tests include PCR and TMA. Th is test has not been FDAcleared or approved. This test has b een authorized by FDA under anEme rgency Use Authorization ( EUA). This test is only authori zed forthe duration of kay e the declaration that circumstan mukesh existjustifying the authorization o f the emergency use of in vitro diagnostic tests for detection o f SARS-CoV-2 virus and/or di agnosisof COVID-19 infect ion under section 564(b)(1) of th e Act, 21 U.S.C.360bbb-3( b) (1), unless the authorizati on is terminated or revokedsoone r.When diagnostic testing is nega tive, the possibility of a falsenegative result should b e considered in the context of a patient'srecent exposures and t he presence of clinical signs and symptomsconsist ent with COVID-19. An in dividual without symptoms of COV ID-19and who is not shedding SA RS-CoV-2 virus would expect to have anegative (not detected) result in this assay.
<br/ >Performed by:
[facility] Sudhir HRENANDEZ)

[facility] [id number] 08:04:00 Test Item Value Reference Range Interpretation [...] S zole (test code = sxt) U/S [id number] 16:20:34Right upper quadrant ultrasoundLocation Code: [id number] HISTORY: Abdominal painTechnique: Grayscaleand selected color Doppler [...] cmright renal cyst.Mildly distended gallbladder without stones.U/S [id number] 16:20:34Right upper quadrant ultrasoundLocation Code: [id number] HISTORY: Abdominal painTechnique: Grayscaleand selected color Doppler [...] cmright renal cyst.Mildly distended gallbladder without stones.U/S [id number] 16:18:11PELVIC ULTRASOUND:Location code: [id number] HISTORY: Pelvic painComparison: NoneTECHNIQUE: Transabdominal sonography of [...] A57) 0.482 uIU/mL 0.358-3.740 CT STONE PROTOCOL [id number] 13:13:26CT ABDOMEN AND PELVIS WITHOUT CONTRAST, RENAL STONE PROTOCOL:Location code: [id number] HISTORY: L flank painCOMPARISON: Left flank painTECHNIQUE: [...] is no ureteral calculus or hydronephrosis.COMPREHENSIVE METABOLIC [id number] 12:56:00 Test Item Value Reference Range Interpretation [...] 31A) 273 IU/L <=78 H AMYLASE AND [id number] 12:54:00 Test Item Value Reference Range Interpretation Comments AMYLASE (test code = 10A) 60 U/L 28-100 LIPASE (test code = 60A) 249 IU/L 73-393 SERUM [id number] 12:40:00 Test Item Value Reference Range Interpretation Comments PREG SRM (test code = PGS) NEGATIVE NEGATIVE URINALYSIS WITH [id number] 12:40:00 Test Item Value Reference Range Interpretation [...]
--- NOTE | 2023-08-06 14:28 | EDPHYS ---
Physician Documentation [facility] Name: Ann Roman Age: 53 yrs Sex: Female : 1970 Arrival Date: 08/06/2023 Time: 14:07 Bed 12 Private MD: ED Physician Tony Cardona HPI: 08/06 14:45 This 53 yrs old Female presents to ER via Ambulatory with complaints of Toe Injury, snw Hand Injury. 14:45 Onset: The symptoms/episode began/occurred suddenly, 1 day(s) ago, and became snw persistent. It is unknown whether or not the patient has had similar symptoms in the past. It is unknown whether or not the patient has recently seen a physician[place] and landed on left hand, right toe. Her cleaned and dressed the areas but pt came to see if the flap of skin should be cut off.. 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 - Social history:: Smoking status: Patient denies any tobacco usage or history of. ROS: 14:45 Constitutional: Negative for fever, chills, and weight loss, Eyes: Negative for injury, snw pain, redness, and discharge, ENT: Negative for injury, pain, and discharge, Neck: Negative for injury, pain, and swelling, Cardiovascular: Negative for chest pain, palpitations, and edema, Respiratory: Negative for shortness of breath, cough, wheezing, and pleuritic chest pain, Abdomen/GI: Negative for abdominal pain, nausea, vomiting, diarrhea, and constipation, Back: Negative for injury and pain, : Negative for injury, bleeding, discharge, and swelling, MS/Extremity: Negative for injury and deformity, Neuro: Negative for headache, weakness, numbness, tingling, and seizure, Psych: Negative for depression, anxiety, suicide ideation, homicidal ideation, and hallucinations, 14:45 Skin: Positive for laceration(s), of the palm of left hand and right great toe, Exam: 14:42 Constitutional: This is a well developed, well nourished patient who is awake, alert, snw and in no acute distress. Head/Face: Normocephalic, atraumatic. Eyes: Pupils equal round and reactive to light, extra-ocular motions intact. Lids and lashes normal. Conjunctiva and sclera are non-icteric and not injected. Cornea within normal limits. Periorbital areas with no swelling, redness, or edema. ENT: Nares patent. No nasal discharge, no septal abnormalities noted. Tympanic membranes are normal and external auditory canals are clear. Oropharynx with no redness, swelling, or masses, exudates, or evidence of obstruction, uvula midline. Mucous membranes moist. Neck: Trachea midline, no thyromegaly or masses palpated, and no cervical lymphadenopathy. Supple, full range of motion without nuchal rigidity, or vertebral point tenderness. No Meningismus. Chest/axilla: Normal chest wall appearance and motion. Nontender with no deformity. No lesions are appreciated. Cardiovascular: Regular rate and rhythm with a normal S1 and S2. No gallops, murmurs, or rubs. Normal PMI, no JVD. No pulse deficits. Respiratory: Lungs have equal breath sounds bilaterally, clear to auscultation and percussion. No rales, rhonchi or wheezes noted. No increased work of breathing, no retractions or nasal flaring. Abdomen/GI: Soft, non-tender, with normal bowel sounds. No distension or tympany. No guarding or rebound. No evidence of tenderness throughout. Back: No spinal tenderness. No costovertebral tenderness. Full range of motion. MS/ Extremity: Pulses equal, no cyanosis. Neurovascular intact. Full, normal range of motion. Neuro: Awake and alert, GCS 15, oriented to person, place, time, and situation. Cranial nerves II-XII grossly intact. Motor strength 5/5 in all extremities. Sensory grossly intact. Cerebellar exam normal. Normal gait. Psych: Awake, alert, with orientation to person, place and time. Behavior, mood, and affect are within normal limits. 14:42 Skin: injury, abrasion(s), small abrasion noted, of the lateral aspect of left calf, avulsion(s), a small of the palm of left hand and medial right great toe, Vital Signs: 14:21 BP 153 / 94; Pulse 86; Resp 17; Temp 98.1(TE); Pulse Ox 98% on R/A; Weight 57.61 kg; me1 Height 5 ft. 4 in. ; 14:21 Body Mass Index 21.80 (57.61 kg, 162.56 cm) me1 MDM: 14:15 Patient medically screened. snw 14:43 Differential diagnosis: abrasion, laceration. Data reviewed: vital signs, nurses notes. snw I considered the following discharge prescriptions or medication management in the emergency department Medications were administered in the Emergency Department. See MAR. Counseling: I had a detailed discussion with the patient and/or guardian regarding the historical points, exam findings, and any diagnostic results supporting the discharge/admit diagnosis, the presence of at least one elevated blood pressure reading (>120/80) during this emergency department visit, the need for outpatient follow up, for definitive care. Special discussion: I have referred the patient to see his PCP for further evaluation of high blood pressure. I discussed in detail with the patient the higher chance of wound infection based on his presenting history. Based on the history and exam findings, there is no indication for further emergent testing or inpatient evaluation. I discussed with the patient/guardian the need to see the primary care provider for further evaluation of the symptoms. 08/06 14:26 Order name: Wound dressing; Complete Time: 15:25 snw Administered Medications: 14:50 Drug: Doxycycline PO 100 mg PO once Route: PO; db 15:29 Follow up: Response: No adverse reaction db 14:55 Drug: Ketorolac IM 30 mg IM once Route: IM; Site: left deltoid; db 15:29 Follow up: Response: No adverse reaction db 14:55 Drug: Boostrix Tdap IM 0.5 ml IM once; as a single dose Route: IM; Site: right deltoid; db 15:29 Follow up: Response: No adverse reaction db 15:00 Drug: Hibiclens Topical Liquid 4 % 1 application Topical once Route: Topical; Site: db affected area; 15:29 Follow up: Response: No adverse reaction db 15:10 Drug: Mupirocin Topical Ointment 2 % 1 application Topical once Route: Topical; Site: db affected area; 15:29 Follow up: Response: No adverse reaction db Disposition: 16:13 I was immediately available on-site in the Emergency Department for consultation in the il3 care of the patient. Disposition Summary: 08/06/23 14:28 Discharge Ordered Notes: Location: Home snw Condition: Stable snw Diagnosis - Deep skin avulsion to left palm and right great toe snw - Fall on same level from slipping, tripping and stumbling with subsequent striking snw against object Followup: snw - With: Emergency Department - When: As needed - Reason: Worsening of condition Followup: snw - With: Private Physician - When: 2 - 3 days - Reason: Recheck today's complaints, Continuance of care, Re-evaluation by your physician Discharge Instructions: - Discharge Summary Sheet snw - Fall Prevention in the Home, Adult snw - Deep Skin Avulsion snw Forms: - Medication Reconciliation Form snw - Thank You Letter snw - Antibiotic Education snw - Prescription Opioid Use snw - Patient Portal Instructions snw - Leadership Thank You Letter snw Prescriptions: - mupirocin 2 % Topical ointment - apply 1 application by TOPICAL route every 8 to 12 hours; 15 gram; Refills: 0, snw Product Selection Permitted - Doxycycline Hyclate 100 mg Oral Tablet - take 1 tablet by ORAL route every 12 hours; 20 tablet; Refills: 0, Product snw Selection Permitted - Diclofenac Sodium 75 mg Oral Tablet Sustained Release - take 1 tablet by ORAL route 2 times per day; 30 tablet; Refills: 0, Product snw Selection Permitted Signatures: Nevaeh Bazan FNP-C HOME THEATRE TECHNICIAN-Csnw Tony Cardona DO DO ms3 Haleigh Gutierres RN RN db Laya Hirsch RN RN me1
--- NOTE | 2023-08-06 14:28 | ER ---
Nurse's Notes [facility] Name: Ann Roman Age: 53 yrs Sex: Female : 1970 Arrival Date: 08/06/2023 Time: 14:07 Bed 12 Private MD: Diagnosis: Deep skin avulsion to left palm and right great toe;Fall on same level from slipping, tripping and stumbling with subsequent striking against object Presentation: 08/06 14:21 Chief complaint: Patient states: [place] and has a wound to me1 left hand and to right great toe. Coronavirus screen: Vaccine status: Patient reports being unvaccinated. Ebola Screen: No symptoms or risks identified at this time. Initial Sepsis Screen: Does the patient meet any 2 criteria? No. Patient's initial sepsis screen is negative. Does the patient have a suspected source of infection? Yes: Skin breakdown/wound. Risk Assessment: Do you want to hurt yourself or someone else? Patient reports no desire to harm self or others. Onset of symptoms was August 05, 2023. 14:21 Method Of Arrival: Amb[place] [facility] [place] 14:21 Acuity: BHAKTI 4 me1 Triage Assessment: 15:29 Injury Description: Avulsion sustained to right foot and left hand. 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 - Social history:: Smoking status: Patient denies any tobacco usage or history of. Screenin:00 [facility] ED Fall Risk Assessment (Adult) History of falling in the last 3 months, db including since admission Yes- single mechanical fall (1 pt) Score/Fall Risk Level 0 - 2 = Low Risk Oriented to surroundings, Maintained a safe environment. Abuse screen: Denies threats or abuse. Denies injuries from another. Nutritional screening: No deficits noted. Tuberculosis screening: No symptoms or risk factors identified. Assessment: 14:50 Reassessment: Patient appears in no apparent distress at this time. Patient and/or db family updated on plan of care and expected duration. Pain level reassessed. Patient is alert, oriented x 3, equal unlabored respirations, skin warm/dry/pink. General: Appears in no apparent distress. comfortable, Behavior is calm, cooperative. Pain: Complains of pain in left foot and left hand and palm of left hand. Neuro: Level of Consciousness is awake, alert, obeys commands, Oriented to person, place, time, situation. Musculoskeletal: Circulation, motion, and sensation intact. Capillary refill < 3 seconds, Range of motion: intact in all extremities. Vital Signs: 14:21 BP 153 / 94; Pulse 86; Resp 17; Temp 98.1(TE); Pulse Ox 98% on R/A; Weight 57.61 kg; me1 Height 5 ft. 4 in. ; 14:21 Body Mass Index 21.80 (57.61 kg, 162.56 cm) ne1 ED Course: 14:09 Patient arrived in ED. rg4 14:14 Nevaeh Bazan FNP-C is PHCP. snw 14:14 Tony Cardona DO is Attending Physician. snw 14:23 Triage completed. ne1 14:23 Arm band placed on Patient placed in waiting room. me1 14:41 Haleigh Gutierres, RN is Primary Nurse. db 15:00 Patient has correct armband on for positive identification. Provided Education on: db DISCHARGE. 15:00 No provider procedures requiring assistance completed. Patient did not have IV access db during this emergency room visit. 15:15 Dressings: Adaptic Kerlix X 1; left hand and palm of left hand. Dressings: Band aid x 1 db left foot. Wound care: to AVULSION. WOUND CARE BANDAID APPLIED located on right foot. Administered Medications: 14:50 Drug: Doxycycline PO 100 mg PO once Route: PO; db 15:29 Follow up: Response: No adverse reaction db 14:55 Drug: Ketorolac IM 30 mg IM once Route: IM; Site: left deltoid; db 15:29 Follow up: Response: No adverse reaction db 14:55 Drug: Boostrix Tdap IM 0.5 ml IM once; as a single dose Route: IM; Site: right deltoid; db 15:29 Follow up: Response: No adverse reaction db 15:00 Drug: Hibiclens Topical Liquid 4 % 1 application Topical once Route: Topical; Site: db affected area; 15:29 Follow up: Response: No adverse reaction db 15:10 Drug: Mupirocin Topical Ointment 2 % 1 application Topical once Route: Topical; Site: db affected area; 15:29 Follow up: Response: No adverse reaction db Medication: 15:00 Vaccine Information Statement (VIS) provided today. Questions and/or concerns db addressed. VIS edition date: June 24, 2021. Outcome: 14:28 Discharge ordered by MD. salgado 15:18 Discharged to home ambulatory, db 15:18 Condition: stable 15:18 Discharge instructions given to patient, Instructed on discharge instructions, follow up and referral plans. Prescriptions given X 3, 15:29 Patient left the ED. db Signatures: Nevaeh Bazan, AIRCRAFT ENGINE SPECIALIST-C AIRCRAFT ENGINE SPECIALIST-Erika Morales rg4 Haleigh Gutierres, RN RN db Laya Hirsch, RN RN me1
[2023-08-06] MEDS ORDERED: KETOROLAC 30 MG/ML INJ ONE (15:01)
[2023-08-06] MEDS ORDERED: TDAP (DIPHTH,PERTUSS(ACELL),TET VAC) 0.5 ML VIAL IMVAC ONE (15:02)
[2023-08-06] MEDS ORDERED: DOXYCYCLINE 100 MG CAP PO ONE (15:02)
[2023-08-06] MEDS ORDERED: MUPIROCIN 2% OINT 22GM TUBE TOP ONE (15:02)
[2023-08-06 15:48] VITALS: BP 153/94; TEMP 98.1; O2SAT 98
== END 2023-08-06 15:29 | disposition home or self-care (01) ==
LOC: ER 14:07
DX: S61.412A Laceration without foreign body of left hand, initial encounter (principal); S91.111A Laceration without foreign body of right great toe without damage to nail, initial encounter; W01.10XA Fall on same level from slipping, tripping and stumbling with subsequent striking against unspecified object, initial encounter